=== PATIENT | male | born 1945 | race Caucasian/White ===

== ENCOUNTER 2018-05-17 08:01 | Emergency (ER) | payer MEDICARE, MEDICAID ==
--- OUTSIDE RECORDS SUMMARY | 2018-05-17 08:19 | XMS REPORT ---
:1945 External Reference #:[id number] Author Organization [facility] Address [address] [address] Phone [phone] Care Team Providers Name Role Phone Roosevelt Kuhn DO Primary Care Physician Unavailable Payers Type Date Identification Numbers Payment Subscriber Provider Medicare Primary Effective: Policy Number: Medicare Carson Byrne 1972 [id number] Anand Group Name: [facility] [address] PayID: [id number] [place] [address] Medigap Part B Effective: Policy Number: Medicaid ### Carson Byrne 2000 [id number] >11 Anand PayID: [id number] [address] [place] [address] Problems Date Description Provider Status Onset: 02/02/2017 Hypothyroidism Adriane Ruiz NP Active Onset: 02/02/2017 Mild mental handicap Adriane Ruiz NP Active Onset: 02/02/2017 Parkinson's disease Adriane Ruiz NP Active Social History Type Date Description Comments Smoking 12/22/2017 Patient has never smoked Allergies, Adverse Reactions, Alerts Date Description Reaction Status Severity Comments 06/11/2016 NKDA active Medications Medication Date Status Form Strength Qnty SIG Indications Ordering Provider Preservision 05/03/ Active Capsules Areds 2 60cap Take 1 Nanavati, Areds 2 2018 s Capsule By Digant Mouth Two M., MD Times A Day QC Aspirin Low 05/03/ Active Tablets DR 81mg 30tab Take 1 Hattie Dose 2018 s Tablet By Roosevelt, Mouth Daily DO *DO Not Crush Or Chew* Artificial 06/02/ Active Solution 1.4% 00uni Instill 1 Miguel Angel, Tears 2016 ts Drop In Each Digant Eye as MD Luis Directed as Needed For Irritation [facility] Zinc Oxide 04/25/ Active Cream 1-10% 113gm to be placed Hattie Diaper 2016 on skin to , Roosevelt Heath, prevent DO breakdown twice daily as needed on buttocks Mapap 03/25/ Active Tablets 325mg 00tab Take 2 Nanavati, 2017 s Tablets Digant (650MG) By MD Luis Mouth Every 4 Hours as Needed For Pain Or Fever >101 Or Discomfort *Max Daily Dose: 8 Calcium 12/28/ Active Tablets 600-400mg 30tab take 1 Hattie Carbonate-Vitam 2017 -Unit s tablet by Roosevelt, in D mouth daily DO send 30 Bacitracin 12/28/ Active Ointment 500Unit/G 00uni Apply 2 Hattie (External) 2017 M ts Times A Day , Roosevelt Heath, as Needed DO For Minor Cuts/ Wounds Until Healed Vitamins/Minera 07/07/ Active Tablets 30tab take 1 Miguel Angel, ls 2016 s tablet by Digant mouth daily MD Luis Gabapentin 07/01/ Active Capsules 300mg 30cap 1 by mouth Hattie 2016 s at bedtime , Roosevelt Heath, DO Trospium 07/01/ Active Tablets 20mg 60tab 1 tab twice Hattie Chloride 2016 s a day , Roosevelt Heath, DO Levothyroxine 07/01/ Active Tablets 50mcg 30tab 1 by mouth Hattie Sodium 2016 s every day , Roosevelt Heath, DO Restasis 07/01/ Active Emulsion 0.05% 60uni 1 Drop In Hattie 2016 ts Each Eye , Roosevelt Heath, Twice A Day DO Propranolol HCL 07/01/ Active Tablets 20mg 60tab 1 by mouth Hattie 2016 s twice a day , Roosevelt Heath, DO Calcitonin 07/01/ Active Solution 200Unit/A 3.7un spray one Hattie ([place]) 2016 ct its spray in a , Roosevelt Heath, nostril DO every day, alternate nostrils daily. Carbidopa-Levod / Active Tablets ER 50-200mg 1 by mouth Unknown opa ER 0000 nightly @ 9:00PM Stool Softener / Active Capsules 100mg 1 by mouth Unknown 0000 twice a day Lamotrigine / Active Tablets 100mg 1 by mouth Unknown 0000 every day @ bedtime Senna / Active Tablets 8.6mg take two Unknown 0000 tablets by mouth at bedtime Rytary / Active Capsules 36.25-145 3 caps tid Unknown 0000 ER mg Buspirone HCL / Active Tablets 10mg 1 by mouth Unknown 0000 twice a day Tussin / Active Liquid 100mg/5ML 10 ml PO q4h Unknown 0000 prn Chlorhexidine / Active Solution 0.12% 473un Use 15 Hattie Gluconate 0000 its Milliliters , Roosevelt P, Up To Two DO Times A Day*Swish And Spit Clindamycin / Active Gel 1% 60uni Apply Daily Nanavati, Phosphate 0000 ts To Affected Digant Area MD Luis Antioxidant 05/03/ Hx Capsules 60cap 1 By Mouth Nanavati, Formula 2018 - s Twice A Day Digant 05/03/ MD Luis 2017 SM Aspirin 12/05/ Hx Tablets DR 81mg 30tab Take 1 Nanavati, Adult Low 2017 - s Tablet By Digant Strength 10/10/ Mouth Daily MD Luis 2017 *DO Not Crush Or Chew* Clindamycin 09/08/ Hx Gel 1% 60uni apply daily Hattie Phosphate 2018 - ts to affected , Roosevelt P, 09/19/ area DO 2017 Clindamycin 04/13/ Hx Gel 1% 60gm apply daily Hattie Phosphate 2016 - to affected , Roosevelt P, 06/15/ area DO 2016 Doxycycline 04/13/ Hx Capsules 100mg 28cap take 1 Hattie Hyclate 2016 - s tablet twice , Roosevelt P, 06/15/ a day for 14 DO 2016 days Amoxicillin 03/09/ Hx Capsules 500mg 14cap 1 capsule R21 Hattie 2016 - s twice a day , Roosevelt P, 06/15/ for 7 days DO 2016 Multi Vitamin 07/01/ Hx Tablets 30tab 1 by mouth Hattie Daily 2015 - s every day , Roosevelt P, 2015 Calcium 600-D 07/01/ Hx Tablets 600-400mg 30tab 1 tab by Hattie 2015 - -Unit s mouth daily. , Roosevelt Heath, 2016 Chlorhexidine 07/01/ Hx Solution 0.12% 118un use 15 Hattie Gluconate 2016 - its milliliters , Roosevelt Heath, 11/10/ up to two DO 2017 times a day Aspirin Ec Low 07/01/ Hx Tablets DR 81mg 30tab Take 1 Nanavati, Dose 2015 - s Tablet By Digant 12/05/ Mouth Daily MD Luis 2017 *DO Not Crush Or Chew* Preservision 07/01/ Hx Capsules Areds 2 60cap 1 By Mouth Miguel Angel, Areds 2 2015 - s Twice A Day Digant 05/03/ MD Luis 2017 Carbidopa-Levod / Hx Tablets 25-100mg take 1 07/26 Unknown opa 0000 - tabs by 06/15/ mouth every 2016 2 hours from 6:30Am to 6:30PM Immunizations CPT Code Status Date Vaccine Reaction Lot # [id number] Given 05/08/2018 Fluzone Highdose Age 65 And Im inj completed, Pt [id number] Over Preservative & tolerated well Antibiotic Free 13913 Given 09/19/2017 Prevnar 13 Pneumococal Pt tolerated well [id number] Conjugate Vaccine 95509 Given 09/19/2017 Fluzone Highdose Age 65 And Pt tolerated well [id number] Over Preservative & Antibiotic Free 66689 Given 06/11/2016 Fluzone Highdose Age 65 And [id number] Over Preservative & Antibiotic Free Vital Signs Date Vital Result Comment 05/08/2018 Body Temperature 97.8 F Weight 122.00 lb Heart Rate 77 /min BP Systolic 118 mmHg BP Diastolic 62 mmHg Respiratory Rate 18 /min Height 69 inches 5'9" O2 % BldC Oximetry 94 % BMI (Body Mass Index) 18.0 kg/m2 03/23/2018 Body Temperature 98.8 F Weight 130.00 lb Heart Rate 90 /min BP Systolic 118 mmHg BP Diastolic 64 mmHg Respiratory Rate 18 /min Height 69 inches 5'9" O2 % BldC Oximetry 98 % BMI (Body Mass Index) 19.2 kg/m2 03/03/2018 Body Temperature 98.6 F Weight 125.00 lb Heart Rate 92 /min BP Systolic 132 mmHg BP Diastolic 70 mmHg Respiratory Rate 18 /min Height 69 inches 5'9" O2 % BldC Oximetry 96 % BMI (Body Mass Index) 18.5 kg/m2 12/22/2017 Body Temperature 97.9 F Weight 128.00 lb Heart Rate 82 /min BP Systolic 106 mmHg BP Diastolic 68 mmHg Respiratory Rate 18 /min Height 69 inches 5'9" O2 % BldC Oximetry 98 % BMI (Body Mass Index) 18.9 kg/m2 09/19/2017 Body Temperature 98.8 F Weight 128.00 lb Heart Rate 92 /min BP Systolic 128 mmHg BP Diastolic 74 mmHg Respiratory Rate 18 /min Height 69 inches 5'9" O2 % BldC Oximetry 98 % BMI (Body Mass Index) 18.9 kg/m2 06/15/2017 Body Temperature 98.2 F Weight 126.00 lb Heart Rate 86 /min BP Systolic 112 mmHg BP Diastolic 64 mmHg Respiratory Rate 16 /min Height 69 inches 5'9" O2 % BldC Oximetry 97 % BMI (Body Mass Index) 18.6 kg/m2 04/13/2017 Body Temperature 97.2 F Weight 126.00 lb Heart Rate 85 /min BP Systolic 120 mmHg BP Diastolic 78 mmHg Respiratory Rate 16 /min Height 69 inches 5'9" O2 % BldC Oximetry 96 % BMI (Body Mass Index) 18.6 kg/m2 04/13/2017 Respiratory Rate 16 /min Height 69 inches 5'9" 03/11/2017 Body Temperature 97.6 F Weight 126.00 lb Heart Rate 68 /min BP Systolic 118 mmHg BP Diastolic 64 mmHg Respiratory Rate 18 /min Height 69 inches 5'9" O2 % BldC Oximetry 98 % BMI (Body Mass Index) 18.6 kg/m2 03/09/2017 Body Temperature 98.3 F Weight 126.00 lb Heart Rate 85 /min BP Systolic 128 mmHg BP Diastolic 66 mmHg Respiratory Rate 18 /min Height 69 inches 5'9" O2 % BldC Oximetry 98 % BMI (Body Mass Index) 18.6 kg/m2 02/22/2017 Body Temperature 98.5 F Weight 129.00 lb Heart Rate 86 /min BP Systolic 152 mmHg BP Diastolic 90 mmHg BP Systolic Recheck 148 mmHg BP Diastolic Recheck 88 mmHg Respiratory Rate 18 /min Height 69 inches 5'9" O2 % BldC Oximetry 98 % BMI (Body Mass Index) 19.0 kg/m2 02/15/2017 Body Temperature 97.6 F Weight 128.00 lb Heart Rate 82 /min BP Systolic 116 mmHg BP Diastolic 62 mmHg Respiratory Rate 18 /min Height 69 inches 5'9" O2 % BldC Oximetry 98 % BMI (Body Mass Index) 18.9 kg/m2 02/02/2017 Body Temperature 98.5 F Weight 126.00 lb Heart Rate 84 /min BP Systolic 136 mmHg BP Diastolic 82 mmHg Height 69 inches 5'9" O2 % BldC Oximetry 98 % BMI (Body Mass Index) 18.6 kg/m2 12/09/2016 Body Temperature 97.8 F Weight 126.00 lb Heart Rate 88 /min BP Systolic 132 mmHg BP Diastolic 78 mmHg Respiratory Rate 20 /min Height 69 inches 5'9" O2 % BldC Oximetry 97 % BMI (Body Mass Index) 18.6 kg/m2 09/02/2016 Body Temperature 96.9 F Weight 128.00 lb Heart Rate 84 /min BP Systolic 100 mmHg BP Diastolic 70 mmHg Respiratory Rate 18 /min Height 69 inches 5'9" O2 % BldC Oximetry 98 % BMI (Body Mass Index) 18.9 kg/m2 06/11/2016 Body Temperature 98.3 F Heart Rate 89 /min BP Systolic 116 mmHg BP Diastolic 70 mmHg Respiratory Rate 16 /min Height 69 inches 5'9" O2 % BldC Oximetry 98 % Results Test Date Test Result H/L Range Note CBC With Diff 10/13/2017 WBC 5.5 10*3/uL (4.1-11.0) RBC 4.16 10*6/uL Low (4.60-6.10) HGB 14.1 g/dL (13.5-18.0) HCT 41.0 % (41.0-53.0) MCV 98.7 fL High (80.0-95.0) MCH 34.1 pg High (27.0-32.0) MCHC 34.5 g/dL (32.0-36.0) RDW 13.2 % (10.5-14.5) PLT 187 10*3/uL (150-450) MPV 7.4 fL (7.1-10.7) Neut % 68.1 % (35.0-75.0) Lymph % 21.9 % (16.0-52.0) [place] % 8.5 % High (0.0-8.0) Eos % 1.1 % (0.0-5.0) Baso % 0.4 % (0.0-4.0) Neut # 3.8 10*3/uL (1.8-7.7) Lymph # 1.2 10*3/uL (1.2-4.8) [place] # 0.5 10*3/uL (0.0-0.8) Eos # 0.1 10*3/uL (0.0-0.5) Baso # 0.0 10*3/uL (0.0-0.2) CBC With Auto Diff 09/08/2017 WBC 4.7 K/uL 4.1-11.0 1 RBC 3.87 M/uL Low 4.60-6.10 1 Hemoglobin 13.4 gm/dL Low 13.5-18.0 1 Hematocrit 38.2 % Low 41.0-53.0 1 MCV 98.8 fL High 80.0-97.0 1 MCH 34.7 pg High 27.0-32.0 1 MCHC 35.1 g/dL 32.0-36.0 1 RDW 13.0 % 11.5-14.5 1 PLT Count 189 K/ul 140-400 1 MPV 7.8 FL 7.1-10.7 1 Neutrophil 66.7 % 35.0-75.0 1 Lymphocyte 22.7 % 16.0-52.0 1 Monocyte 8.8 % 2.0-10.0 1 Eosinophil 1.3 % 0.0-5.0 1 Basophil 0.5 % 0.0-4.0 1 Abs Neutrophils 3.1 K/uL 2.1-8.0 1 Abs Lymphocytes 1.1 K/uL 0.8-5.5 1 Abs Monocytes 0.4 K/uL 0.1-1.0 1 Abs Eosinophils 0.1 K/uL 0.0-0.5 1 Abs Basophils 0.0 K/uL 0.0-0.3 1 Comprehensive Met Panel-FCMG 09/08/2017 Sodium 144 mmol/L 135-146 1, 2 Potassium 4.5 mmol/L 3.5-5.2 1 Chloride# 104 mmol/L 97-110 1, 3 Carbon Dioxide 33 mmol/L 24-34 1 Glucose 77 mg/dL 70-105 1 BUN 17 mg/dL 6-26 1 Creatinine 0.8 mg/dL 0.5-1.4 1 Calcium 9.9 mg/dL 8.5-10.2 1 Total Protein 5.8 g/dL Low 6.0-8.0 1 Albumin 4.3 g/dL 3.6-4.9 1 Globulin 1.5 g/dL Low 2.0-3.5 1 A/G Ratio 2.9 Ratio High 1.0-2.2 1 Total Bilirubin 0.6 mg/dL 0.1-1.3 1 Alkaline Phosphatase 56 U/L 24-140 1 Alt 4 U/L 3-42 1 Ast 17 U/L 8-42 1 Li Egfr >60 >60 1, 4 Non Li Egfr >60 >60 1, 5 Anion Gap 7 mmol/L 5-15 1, 6 Lipid 09/08/2017 Cholesterol 171 mg/dL 50-199 1 Triglycerides 74 mg/dL 30-200 1 HDL 58 mg/dL 29-71 1, 7 Chol/ HDL Ratio 2.9 ratio Low 4.0-6.7 1 VLDL 15 mg/dL 2-29 1 LDL (Calc) 98 mg/dL 20-99 1, 8 Laboratory test finding 09/08/2017 TSH 1.05 uIU/mL 0.35-4.94 1 Vitamin B12 453 pg/mL 180-914 1 Vitamin D 25 Hydroxy 29 ng/mL Low 30-100 1, 9 Iron Panel 11/25/2016 Iron, Total 66 g/dL 65-175 10 Transferrin 216.0 mg/dL 203.0-362.0 10 Tibc (calc) 302 g/dL 261-478 10 % Iron Saturation 21.8 % 13.0-45.0 10 Laboratory test finding 11/25/2016 TSH 0.75 uIU/mL 0.35-4.94 10 Vitamin B12 407 pg/mL 180-914 10 Vit D,25 Hydroxy 45 ng/mL 31-100 10 Lipid 11/25/2016 Cholesterol 172 mg/dL 50-199 10 Triglycerides 48 mg/dL 30-200 10 HDL 62 mg/dL 29-71 10, 11 Chol/ HDL Ratio 2.8 ratio Low 4.0-6.7 10 VLDL 10 mg/dL 2-29 10 LDL (Calc) 101 mg/dL High 20-99 10, 12 Comprehensive Metabolic (CMP) 11/25/2016 Sodium 143 mmol/L 135-146 10, 13 Potassium 4.5 mmol/L 3.5-5.2 10 Chloride# 106 mmol/L 97-110 10, 14 Carbon Dioxide 29 mmol/L 24-34 10 Glucose 86 mg/dL 70-105 10 BUN 27 mg/dL High 6-26 10 Creatinine 0.8 mg/dL 0.5-1.4 10 Calcium 9.3 mg/dL 8.5-10.2 10 Total Protein 5.9 g/dL Low 6.0-8.0 10 Albumin 4.1 g/dL 3.6-4.9 10 Globulin 1.8 g/dL Low 2.0-3.5 10 A/G Ratio 2.3 Ratio High 1.0-2.2 10 Total Bilirubin 0.5 mg/dL 0.1-1.3 10 Alkaline Phosphatase 55 U/L 24-140 10 Alt 5 U/L 3-42 10 Ast 17 U/L 8-42 10 Li Egfr >60 >60 10, 15 Non Li Egfr >60 >60 10, 16 Anion Gap 13 mmol/L 7-16 10, 17 CBC With Auto Diff 11/25/2016 WBC 6.6 K/uL 4.1-11.0 10 RBC 3.82 M/uL Low 4.60-6.10 10 Hemoglobin 12.9 gm/dL Low 13.5-18.0 10 Hematocrit 38.4 % Low 41.0-53.0 10 MCV 100.5 fL High 80.0-97.0 10 MCH 33.7 pg High 27.0-32.0 10 MCHC 33.6 g/dL 32.0-36.0 10 RDW 13.2 % 11.5-14.5 10 PLT Count 193 K/ul 140-400 10 Neutrophil 70.6 % 35.0-75.0 10 Lymphocyte 18.6 % 16.0-52.0 10 Monocyte 9.2 % 2.0-10.0 10 Eosinophil 1.2 % 0.0-5.0 10 Basophil 0.4 % 0.0-4.0 10 Abs Neutrophils 4.7 K/uL 2.1-8.0 10 Abs Lymphocytes 1.2 K/uL 0.8-5.5 10 Abs Monocytes 0.6 K/uL 0.1-1.0 10 Abs Eosinophils 0.1 K/uL 0.0-0.5 10 Abs Basophils 0.0 K/uL 0.0-0.3 10 CBC With Auto Diff 06/11/2016 WBC 5.1 K/uL 4.1-11.0 18 RBC 3.76 M/uL Low 4.60-6.10 18 Hemoglobin 12.8 gm/dL Low 13.5-18.0 18 Hematocrit 37.2 % Low 41.0-53.0 18 MCV 98.9 fL High 80.0-97.0 18 MCH 34.1 pg High 27.0-32.0 18 MCHC 34.4 g/dL 32.0-36.0 18 RDW 13.5 % 11.5-14.5 18 PLT Count 220 K/ul 140-400 18 Neutrophil 71.9 % 35.0-75.0 18 Lymphocyte 19.8 % 16.0-52.0 18 Monocyte 7.2 % 2.0-10.0 18 Eosinophil 0.7 % 0.0-5.0 18 Basophil 0.4 % 0.0-4.0 18 Abs Neutrophils 3.7 K/uL 2.1-8.0 18 Abs Lymphocytes 1.0 K/uL 0.8-5.5 18 Abs Monocytes 0.4 K/uL 0.1-1.0 18 Abs Eosinophils 0.0 K/uL 0.0-0.5 18 Abs Basophils 0.0 K/uL 0.0-0.3 18 Comprehensive Metabolic (CMP) 06/11/2016 Sodium 140 mmol/L 134-142 18 Potassium 4.0 mmol/L 3.5-5.2 18 Chloride 102 mmol/L 97-109 18 Carbon Dioxide 29 mmol/L 24-34 18 Glucose 149 mg/dL High 70-105 18 BUN 27 mg/dL High 6-26 18 Creatinine 0.7 mg/dL 0.5-1.4 18 Calcium 9.0 mg/dL 8.5-10.2 18 Total Protein 6.3 g/dL 6.0-8.0 18 Albumin 4.3 g/dL 3.6-4.9 18 Globulin 2.0 g/dL 2.0-3.5 18 A/G Ratio 2.2 Ratio 1.0-2.2 18 Total Bilirubin 0.4 mg/dL 0.1-1.3 18 Alkaline Phosphatase 70 U/L 24-140 18 Alt 19 U/L 3-42 18 Ast 18 U/L 8-42 18 Anion Gap 13 mmol/L 6-14 18 Li Egfr >60 >60 18, 19 Non Li Egfr >60 >60 18, 20 Lipid 06/11/2016 Cholesterol 155 mg/dL 50-199 18 Triglycerides 113 mg/dL 30-200 18 HDL 60 mg/dL 29-71 18, 21 Chol/ HDL Ratio 2.6 ratio Low 4.0-6.7 18 VLDL 23 mg/dL 2-29 18 LDL (Calc) 72 mg/dL 20-99 18, 22 Laboratory test finding 06/11/2016 TSH 0.66 uIU/mL 0.35-4.94 18 Hepatitis C Virus Antibody NONREACTIVE Nonreactive 18 1 This sample is drawn by:earnestine 2 Updated reference range on new analyzer 3 Updated reference range on new analyzer 4 Concerning GFR Guidelines for Americans: Normal function or mild renal disease, if clinically at risk: >/=60 mL/min Moderately decreased: 30-59 Severely decreased: 15-29 Renal failure: <15 5 Concerning GFR Guidelines: Normal function or mild renal disease, if clinically at risk: >/=60 mL/min Moderately decreased: 30-59 Severely decreased: 15-29 Renal failure: <15 Glomerular Filtration Rate (GFR) is estimated based on the MDRD equation, which assumes a steady state for creatinine as recommended by the National Kidney Disease Education Program in conjunction with the National Institutes of Health and the National Kidney Foundation. Clinical conditions in which it may be necessary to measure GFR by using clearance methods include extremes of age and body size, severe malnutrition or obesity, diseases of skeletal muscle, paraplegia or quadriplegia, vegetarian diet, rapidly changing kidney function, and calculation of the dose of potentially toxic drugs that are excreted by the kidneys. 6 Updated Reference Range 7 Per NCEP ATP III Guidelines: Results lower than 40 mg/dL are suggestive of increased risk for coronary artery disease. Results > or=to 60 mg/dL are considered a negative risk factor. 8 Per NCEP ATP III Guidelines: Normal Population <130 Patients with medical conditions: CHD/DM Optimal: <100 Borderline high: 130-159 High: 160-189 Very high: >189 9 Clinical Guidelines for recommended serum 25(OH)Vitamin D Deficient at less than 20 ng/mL Insufficient at 20 to <30 ng/mL Sufficient at 30-100 ng/mL Toxicity at greater than 100 ng/mL 10 This sample is drawn by:DG Fastin hours This sample is drawn by:DG Fastin hours Fastin hours Fastin hours Fastin hours Fastin hours Fastin hours This sample is drawn by:DG Fastin hours This sample is drawn by:DG Fastin hours This sample is drawn by:DG Fastin hours 11 Per NCEP ATP III Guidelines: Results lower than 40 mg/dL are suggestive of increased risk for coronary artery disease. Results > or=to 60 mg/dL are considered a negative risk factor. 12 Per NCEP ATP III Guidelines: Normal Population <130 Patients with medical conditions: CHD/DM Optimal: <100 Borderline high: 130-159 High: 160-189 Very high: >189 13 Updated reference range on new analyzer 14 Updated reference range on new analyzer 15 Concerning GFR Guidelines for Americans: Normal function or mild renal disease, if clinically at risk: >/=60 mL/min Moderately decreased: 30-59 Severely decreased: 15-29 Renal failure: <15 16 Concerning GFR Guidelines: Normal function or mild renal disease, if clinically at risk: >/=60 mL/min Moderately decreased: 30-59 Severely decreased: 15-29 Renal failure: <15 Glomerular Filtration Rate (GFR) is estimated based on the MDRD equation, which assumes a steady state for creatinine as recommended by the National Kidney Disease Education Program in conjunction with the National Institutes of Health and the National Kidney Foundation. Clinical conditions in which it may be necessary to measure GFR by using clearance methods include extremes of age and body size, severe malnutrition or obesity, diseases of skeletal muscle, paraplegia or quadriplegia, vegetarian diet, rapidly changing kidney function, and calculation of the dose of potentially toxic drugs that are excreted by the kidneys. 17 Updated reference range on new analyzer 18 This sample is drawn by:tg 19 Concerning GFR Guidelines for Americans: Normal function or mild renal disease, if clinically at risk: >/=60 mL/min Moderately decreased: 30-59 Severely decreased: 15-29 Renal failure: <15 20 Concerning GFR Guidelines: Normal function or mild renal disease, if clinically at risk: >/=60 mL/min Moderately decreased: 30-59 Severely decreased: 15-29 Renal failure: <15 Glomerular Filtration Rate (GFR) is estimated based on the MDRD equation, which assumes a steady state for creatinine as recommended by the National Kidney Disease Education Program in conjunction with the National Institutes of Health and the National Kidney Foundation. Clinical conditions in which it may be necessary to measure GFR by using clearance methods include extremes of age and body size, severe malnutrition or obesity, diseases of skeletal muscle, paraplegia or quadriplegia, vegetarian diet, rapidly changing kidney function, and calculation of the dose of potentially toxic drugs that are excreted by the kidneys. 21 Per NCEP ATP III Guidelines: Results lower than 40 mg/dL are suggestive of increased risk for coronary artery disease. Results > or=to 60 mg/dL are considered a negative risk factor. 22 Per NCEP ATP III Guidelines: Normal Population <130 Patients with medical conditions: CHD/DM Optimal: <100 Borderline high: 130-159 High: 160-189 Very high: >189 Procedures Date CPT Code Description Status Comment 03/23/2018 36881 Electrocardiogram Complete Completed 03/11/2017 04969 Electrocardiogram Complete Completed 02/04/2017 Colonoscopy Completed Document: 02/04/17 - Cologuard Results 12/09/2016 05711 Electrocardiogram Complete Completed Encounters Type Date Location Provider CPT E/M Dx Office Visit 03/23/2018 [facility] Roosevelt Kuhn, [address] M81.0 9:00a Associates DO E03.9 F70 I10 L30.9 Z12.11 Office Visit 03/03/2018 1:00p [place] [address] F71 Associates R21 R29.6 S81.011A Office Visit 12/22/2017 9:00a [place] Roosevelt Garza, [address] Z00.00 [place] DO E03.9 G20 I10 F71 Office Visit 09/19/2017 1:30[place] [address] G20 Associates E78.5 D64.9 R21 F70 I10 Z23 Z12.11 Office Visit 06/15/2017 9:15[place] [address] E03.9 Associates G20 E55.9 R21 F70 I10 Office Visit 04/13/2017 11:30a [facility] [place] [address] R21 Associates G20 F70 I10 E78.5 Office Visit 03/11/2017 10:30a [facility] [place] [address] R21 Associates G20 F70 I10 E03.9 Office Visit 03/09/2017 10:30a [facility] Roosevelt Kuhn, [address] R21 Associates DO Office Visit 02/22/2017 2:00p [facility] Roosevelt Kuhn, [address] S01.01xD Associates DO G20 F70 R29.6 I10 Office Visit 02/15/2017 3:00p [facility] Roosevelt Kuhn, [address] S01.01xA Associates DO G20 F70 R29.6 Office Visit 02/02/2017 11:40a [facility] Michael Salgado, [address] R41.82 Associates CAT Forrest G20 F70 E03.9 B35.3 Office Visit 12/09/2016 10:00a [facility] Roosevelt Kuhn, G0439 Z00.00 Associates DO G20 F70 I10 E03.9 E55.9 E78.5 D64.9 Z12.11 Office Visit 09/02/2016 11:00a [facility] [place] [address] G20 Associates E03.9 F70 I10 Office Visit 06/11/2016 11:00a [facility] [place] [address] G20 Associates H26.9 E03.9 F70 I10 Z23 Z13.9 Z72.89 Plan of Care Future Appointment(s):06/22/2018 9:00 am - Roosevelt Kuhn DO at [facility][Note 3]05/08/2018 - Roosevelt Kuhn, DOZ23 Encounter for immunizationComments:patient tolerated immunization wellL30.9 Dermatitis, unspecifiedComments:Patient to start topical clindamycin. House counseled on proper hygiene. Continue to monitor. Patient to return in 2 weeks unless rash is [id number] Moderate intellectual disabilitiesComments:Continue excellent home care. Continue to [id number] Parkinson's diseaseComments:continue to follow with neurology. Patient tolerating medication wellI10 Essential (primary ) hypertensionComments:stable currently. Continue current regimen
[2018-05-17 08:36] VITALS: BP 132/76
--- NOTE | 2018-05-17 08:51 | UC ---
Head Injury HPI - HPI Summary HPI Summary: 72 year old male comes in today with a chief complaint of head injury. Sometime between 4 and 6 this morning he sustained injury. Patient has special needs and is essentially nonverbal and lives in a [facility]. As 4 AM check he had no injury at the 6 AM check he had a bump on his left forehead. His behaviors been normal otherwise. No focal neurologic deficit he has not been throwing up. No abnormal behavior. - History Of Current Complaint Chief Complaint: UCHeadInjury Stated Complaint: SP FALL-HEAD INJURY Time Seen by Provider: 05/17/18 08:43 Pain Intensity: 4 - Allergies/Home Medications Allergies/Adverse Reactions: Allergies Allergy/AdvReac Type Severity Reaction Status Date / Time No Known Allergies Allergy Verified 05/17/18 08:46 Home Medications: Home Medications Chlorhexidine MW 0.12% 473ML* [Peridex Mouth Wash 0.12%*] 15 ml MT BID 05/17/18 [History Confirmed 05/17/18] Clindamycin 1% TOPICAL(NF) [Cleocin-T 1% TOPICAL(NF)] 1 % EX DAILY 05/17/18 [ History Confirmed 05/17/18] Docusate CAP* [Colace Cap*] 100 mg PO BID 05/17/18 [History Confirmed 05/17/18] Rytary 3 tab PO TID 05/17/18 [History Confirmed 05/17/18] busPIRone TAB* [Buspar TAB*] 10 mg PO BID 05/17/18 [History Confirmed 05/17/18] PMH/Surg Hx/FS Hx/Imm Hx Endocrine History: Hypothyroidism Cardiovascular History: Hypertension - Surgical History Surgical History: Yes Surgery Procedure, Year, and Place: 1976 HERNIA; BILAT INGUINAL HERNIA 11/20-2006; RT INGUINAL HERNIA 02/2010 - Family History Known Family History: Positive: Unknown - Social History Alcohol Use: None Substance Use Type: None Smoking Status (MU): Never Smoked Tobacco Review of Systems Constitutional: Negative Skin: Other - see hpi Eyes: Negative ENT: Negative Respiratory: Negative Cardiovascular: Negative Gastrointestinal: Negative Motor: Negative Neurovascular: Negative Musculoskeletal: Negative Neurological: Negative Psychological: Negative Is Patient Immunocompromised?: No All Other Systems Reviewed And Are Negative: Yes Physical Exam Triage Information Reviewed: Yes Completion Of Physical Exam Limited Due To: Other - Patient is nonverbal at baseline Appearance: Well-Appearing, No Pain Distress, Well-Nourished Vital Signs: Initial Vital Signs Temp 97.3 F 05/17/18 08:28 Pulse 73 05/17/18 08:28 Resp 18 05/17/18 08:28 BP 132/76 05/17/18 08:28 Pulse Ox 100 05/17/18 08:28 Vital Signs Reviewed: Yes Eye Exam: Normal Eyes: Positive: Conjunctiva Clear ENT: Positive: Normal ENT inspection, TMs normal, Other - Swelling on the left forehead Neck exam: Normal Neck: Positive: Supple, Nontender Respiratory: Positive: Lungs clear, Normal breath sounds, No respiratory distress Cardiovascular: Positive: RRR Abdomen Description: Positive: Nontender, Soft Bowel Sounds: Positive: Present Musculoskeletal Exam: Normal Musculoskeletal: Positive: Strength Intact, ROM Intact Neurological Exam: Normal Neurological: Positive: Alert, Muscle Tone Normal Psychological Exam: Normal Psychological: Positive: Age Appropriate Behavior Skin Exam: Normal Head Injury Course/Dx - Course Course Of Treatment: Order Information: CT SPINE CERVICAL W/O. Accession Number : [id number]. CPT: 91831. Indication: Fall, neck injury. CT of the cervical spine was obtained in the axial plane. Sagittal and coronal. reconstructed images were obtained. Mastoid air cells and skull base are unremarkable. The C1 ring is intact with degenerative. changes of the atlantoaxial joint. The vertebral bodies appear normal in height. No evidence of compression fracture is. noted. There is disc space narrowing at C4-C5 and C6-C7 with mild dorsal osteophyte. formation. Spinal canal appears to be intact. The intervertebral foramen all appear. patent. IMPRESSION: No fracture of the cervical spine is noted. Degenerative disc disease at C4-C5. and C6-C7 is noted. . <Electronically signed by Lucie Becerra MD in [facility]> 05/17/18 0990. Order Information: CT BRAIN WO. Accession Number: [id number]. CPT: 97096. Indication: Fall this morning. Swelling and bruising at LEFT forehead. Comparison: January 30, 2008 MRI. Technique: Noncontrast CT vertex of skull through foramen magnum. Report: Mild prominence of the cerebral sulci and cerebellar fissures reflecting atrophy. Unremarkable ventricles and basal cisterns. Negative for sanchez matter white matter. obscuration, intra or extra-axial hemorrhage, or mass effect. Decreased density in the. periventricular and subcortical white matter while non-specific is most likely due to. chronic microangiopathy. Negative for calvarial or skull base fracture. Grossly clear paranasal sinuses and mastoid. air spaces. Small LEFT frontal scalp hematoma. IMPRESSION: #. No CT evidence for traumatic brain injury. #. Small LEFT frontal scalp hematoma. #. Mild involutional change and stigmata of chronic small vessel ischemic disease. . <Electronically signed by David Yates MD in [facility]> 05/17/1896. Discussed the CT results with the patient and his caregiver. The plan is to ice pack the area as needed. Otherwise reevaluation if patient has any worsening of symptoms such as weakness numbness unexplained vomiting or any other concerns. - Differential Dx/Diagnosis Provider Diagnoses: HEAD INJURY Discharge - Sign-Out/Discharge Documenting (check all that apply): Patient Departure All imaging exams completed and their final reports reviewed: Yes - Discharge Plan Condition: Stable Disposition: HOME Patient Education Materials: Head Injury (ED) Referrals: Cristina Michelle MD [Primary Care Provider] - Additional Instructions: FOLLOW UP WITH YOUR DOCTOR IF NOT COMPLETELY IMPROVED. GET RECHECKED FOR ANY WORSENING OF YOUR CONDITION; WEAKNESS, NUMBNESS, UNEXPLAINED VOMITING OR QUESTIONS OR CONCERNS. - Billing Disposition and Condition Condition: STABLE Disposition: Home
--- NOTE | 2018-05-17 09:29 | RAD ---
Indication: Fall, neck injury. CT of the cervical spine was obtained in the axial plane. Sagittal and coronal reconstructed images were obtained. Mastoid air cells and skull base are unremarkable. The C1 ring is intact with degenerative changes of the atlantoaxial joint. The vertebral bodies appear normal in height. No evidence of compression fracture is noted. There is disc space narrowing at C4-C5 and C6-C7 with mild dorsal osteophyte formation. Spinal canal appears to be intact. The intervertebral foramen all appear patent. IMPRESSION: No fracture of the cervical spine is noted. Degenerative disc disease at C4-C5 and C6-C7 is noted.
--- NOTE | 2018-05-17 09:30 | RAD ---
Indication: Fall this morning. Swelling and bruising at LEFT forehead. Comparison: January 30, 2008 MRI. Technique: Noncontrast CT vertex of skull through foramen magnum. Report: Mild prominence of the cerebral sulci and cerebellar fissures reflecting atrophy. Unremarkable ventricles and basal cisterns. Negative for sanchez matter white matter obscuration, intra or extra-axial hemorrhage, or mass effect. Decreased density in the periventricular and subcortical white matter while non-specific is most likely due to chronic microangiopathy. Negative for calvarial or skull base fracture. Grossly clear paranasal sinuses and mastoid air spaces. Small LEFT frontal scalp hematoma. IMPRESSION: #. No CT evidence for traumatic brain injury. #. Small LEFT frontal scalp hematoma. #. Mild involutional change and stigmata of chronic small vessel ischemic disease.
== END 2018-05-17 10:05 | disposition home or self-care (01) ==
LOC: UCCORT 08:01
DX: S00.03XA Contusion of scalp, initial encounter (principal); I67.82 Cerebral ischemia; M50.320 Other cervical disc degeneration, mid-cervical region, unspecified level; I10 Essential (primary) hypertension; E03.9 Hypothyroidism, unspecified; R47.89 Other speech disturbances; W19.XXXA Unspecified fall, initial encounter; Y92.9 Unspecified place or not applicable; Z79.2 Long term (current) use of antibiotics
CPT/HCPCS: 70450; 72125; 99202; G0463

== ENCOUNTER 2018-07-25 10:02 | Emergency (ER) | payer MEDICARE, MEDICAID ==
--- OUTSIDE RECORDS SUMMARY | 2018-07-25 10:28 | XMS REPORT | Continuity of Care Document ---
:1945 External Reference #:[id number] Author Name Nava Padron PA Address [address] [place] [address] Care Team Providers Name Role Phone Roosevelt Kuhn DO Primary Care Physician Unavailable Payers Type Date Identification Numbers Payment Provider Subscriber Effective: Policy Number: Medicare Carson Michel 1972 [id number] Group Name: [facility] [address] PayID: [id number] [place] [address] Effective: 2001 Policy Number: Medicaid ### Carson Michel [id number] PayID: [id number] [address] [place] [address] Advance Directives Description No Information Available Problems Date Description Provider Status Onset: 02/02/2017 Parkinson's disease Michael Salgado Active Adriane, CAT Onset: 02/02/2017 Mild mental handicap Adela Ruiz, EXTERNAL RELATIONS DIRECTOR Onset: 02/02/2017 Hypothyroidism Adela Ruizqueline, EXTERNAL RELATIONS DIRECTOR Onset: 05/22/2018 Varicose veins of lower extremity Nava Padron PA Active Onset: 05/22/2018 Moderate intellectual disability Nava Padron PA Active Onset: 05/22/2018 Nervous system symptoms Nava Padron PA Active Family History Description No Information Available Social History Type Date Description Comments Sex Unknown Tobacco Use Reviewed: 12/22/17 Patient has never smoked Smoking Status Reviewed: 06/28/18 Patient has never smoked Allergies, Adverse Reactions, Alerts Description No Known Drug Allergies Medications Medication Date Status Form Strength Qnty SIG Indications Ordering Provider Miralax 07/19 Active Powder 510un if no BM in K59.00 ava its 48 hours give Digant pt 8 grams in MD Luis 8 oz of fluid Shingrix 06/28 Active Suspension 50mcg/0.5 1unit give as Rec ML s directed and , Roosevelt Heath, send DO documentation to primary care physician Preservision 05/03 Active Capsules Areds 2 60cap Take 1 Nanavati, Areds s Capsule By Digant Mouth Two MD Luis Times A Day QC Aspirin Low 05/[address] 81mg 30tab Take 1 Tablet Hattie Dose s By Mouth , Roosevelt Heath, Daily *DO Not DO Crush Or Chew* Artificial 06/02 Active Solution 1.4% 00uni Instill 1 ava, ts Drop In Each Digant Eye as MD Luis Directed as Needed For Irritation [facility] Zinc Oxide 04/25 Active Cream 1-10% 113gm to be placed Hattie Diap on skin to , Roosevelt Heath, prevent DO breakdown twice daily as needed on buttocks Mapap 03/25 Active Tablets 325mg 00tab Take 2 ava s Tablets Digant (650MG) By MD Luis Mouth Every 4 Hours as Needed For Pain Or Fever >101 Or Discomfort *Max Daily Dose: 8 Calcium 12/28 Active Tablets 600-400mg 30tab take 1 tablet Hattie Carbonate-Lucia -Unit s by mouth , Roosevelt Heath, min D daily send DO 30 Bacitracin 12/28 Active Ointment 500Unit/G 00uni Apply 2 Times Hattie (External) M ts A Day as Roosevelt, Needed For DO Minor Cuts/ Wounds Until Healed Vitamins/Sql Data Analyst 07/07 Active Tablets 30tab take 1 tablet Nanavati, s by mouth Digant daily MD Luis Gabapentin 07/01 Active Capsules 300mg 30cap 1 by mouth at Hattie /2016 s bedtime , Roosevelt Heath, DO Trospium 07/01 Active Tablets 20mg 60tab 1 tab twice a Hattie s day , Roosevelt Heath, DO Levothyroxine 07/01 Active Tablets 50mcg 30tab 1 by mouth Hattie Sodium /2015 s every day , Roosevelt P, DO Restasis 07/01 Active Emulsion 0.05% 60uni 1 Drop In Hattie /2015 ts Each Eye , Roosevelt P, Twice A Day DO Propranolol 07/01 Active Tablets 20mg 60tab 1 by mouth Hattie HCL s twice a day , Roosevelt P, DO Calcitonin 07/01 Active Solution 200Unit/A 3.7un spray one Hattie (Russell) ct its spray in a , Roosevelt P, nostril every DO day, alternate nostrils daily. Carbidopa-Levo Active Tablets ER 50-200mg 1 by mouth Unknown dopa ER / nightly @ 9:00PM Stool Softener Active Capsules 100mg 1 by mouth Unknown 0000 twice a day Lamotrigine Active Tablets 100mg 1 by mouth Unknown 0000 every day @ bedtime Senna Active Tablets 8.6mg take two tablets by mouth at bedtime Rytary Active Capsules ER 36.25-145 3 caps tid Unknown mg Buspirone HCL Active Tablets 10mg 1 by mouth Unknown twice a day Tussin Active Liquid 100mg/5ML 10 ml PO q4h Unknown prn Chlorhexidine Active Solution 0.12% 473un Use 15 Hattie Gluconate its Milliliters , Roosevelt P, Up To Two DO Times A Day*Swish And Spit Clindamycin Active Gel 1% 60uni Apply Daily Nanavati, Phosphate ts To Affected Digant Area MD Luis Antioxidant 05/03 Hx Capsules 60cap 1 By Mouth Nanavati, Formula s Twice A Day Digpete - MD Luis 05/03 SM Aspirin 12/[address] 81mg 30tab Take 1 Tablet Nanavati, Adult Low s By Mouth Digant Strength - Daily *DO Not MD Luis 05/03 Crush Or Chew* Clindamycin 09/08 Hx Gel 1% 60uni apply daily Hattie Phosphate ts to affected , Roosevelt P, - area DO 09/19 Clindamycin 04/13 Hx Gel 1% 60gm apply daily Hattie Phosphate to affected , Roosevelt Heath, - area DO 06/15 Doxycycline 04/13 Hx Capsules 100mg 28cap take 1 tablet Hattie Hyclate s twice a day , Roosevelt P, - for 14 days DO 06/15 Amoxicillin 03/09 Hx Capsules 500mg 14cap 1 capsule R21 Hattie s twice a day , Roosevelt P, - for 7 days DO 06/15 Multi Vitamin 07/01 Hx Tablets 30tab 1 by mouth Hattie Daily /2015 s every day , Roosevelt P, - DO 07/07 Calcium 600-D 07/01 Hx Tablets 600-400mg 30tab 1 tab by Hattie /2015 -Unit s mouth daily. , Roosevelt Heath, - DO 12/28 Chlorhexidine 07/01 Hx Solution 0.12% 118un use 15 Hattie Gluconate its milliliters , Roosevelt P, - up to two DO 11/10 times a day /2017 Aspirin Ec Low 07/[address] 81mg 30tab Take 1 Tablet Nanavati, Dose s By Mouth Digant - Daily *DO Not MD Luis 12/05 Crush Chew* Preservision 07/01 Hx Capsules Areds 2 60cap 1 By Mouth Nanavati, Areds s Twice A Day Cristina Smith MD 05/03 Carbidopa-Levo 00 Hx Tablets 25-100mg take 1 07/26 Unknown dopa /0000 tabs by mouth - every 2 hours 06/15 from 6:30Am to 6:30PM Immunizations CPT Code Status Date Vaccine Reaction Lot # [id number] Given 05/08/2018 Fluzone Highdose Age 65 And Im inj completed, Pt [id number] Over Preservative & tolerated well Antibiotic Free Given 09/19/2017 Prevnar 13 Pneumococal Pt tolerated well [id number] Conjugate Vaccine [id number] Given 09/19/2017 Fluzone Highdose Age 65 And Pt tolerated well [id number] Over Preservative & Antibiotic Free [id number] Given 06/11/2016 Fluzone Highdose Age 65 And [id number] Over Preservative & Antibiotic Free 17485 Given 09/27/2014 Tdap (Adacel) Ages 7 And Above Only Vital Signs Date Vital Result Comment 07/19/2018 2:45pm Body Temperature 97.7 F Weight 119.00 lb Heart Rate 80 /min BP Systolic 126 mmHg BP Diastolic 68 mmHg Respiratory Rate 18 /min Height 69 inches 5'9" O2 % BldC Oximetry 96 % BMI (Body Mass Index) 17.6 kg/m2 06/28/2018 9:54am Body Temperature 98.6 F Weight 119.00 lb Heart Rate 79 /min BP Systolic 118 mmHg BP Diastolic 72 mmHg Respiratory Rate 18 /min Height 69 inches 5'9" O2 % BldC Oximetry 79 % BMI (Body Mass Index) 17.6 kg/m2 05/22/2018 10:33am Weight 122.00 lb Heart Rate 75 /min BP Systolic 142 mmHg BP Diastolic 80 mmHg Respiratory Rate 16 /min Height 69 inches 5'9" O2 % BldC Oximetry 92 % BMI (Body Mass Index) 18.0 kg/m2 05/08/2018 9:23am Body Temperature 97.8 F Weight 122.00 lb Heart Rate 77 /min BP Systolic 118 mmHg BP Diastolic 62 mmHg Respiratory Rate 18 /min Height 69 inches 5'9" O2 % BldC Oximetry 94 % BMI (Body Mass Index) 18.0 kg/m2 03/23/2018 8:59am Body Temperature 98.8 F Weight 130.00 lb Heart Rate 90 /min BP Systolic 118 mmHg BP Diastolic 64 mmHg Respiratory Rate 18 /min Height 69 inches 5'9" O2 % BldC Oximetry 98 % BMI (Body Mass Index) 19.2 kg/m2 03/03/2018 1:51pm Body Temperature 98.6 F Weight 125.00 lb Heart Rate 92 /min BP Systolic 132 mmHg BP Diastolic 70 mmHg Respiratory Rate 18 /min Height 69 inches 5'9" O2 % BldC Oximetry 96 % BMI (Body Mass Index) 18.5 kg/m2 12/22/2017 9:04am Body Temperature 97.9 F Weight 128.00 lb Heart Rate 82 /min BP Systolic 106 mmHg BP Diastolic 68 mmHg Respiratory Rate 18 /min Height 69 inches 5'9" O2 % BldC Oximetry 98 % BMI (Body Mass Index) 18.9 kg/m2 09/19/2017 2:01pm Body Temperature 98.8 F Weight 128.00 lb Heart Rate 92 /min BP Systolic 128 mmHg BP Diastolic 74 mmHg Respiratory Rate 18 /min Height 69 inches 5'9" O2 % BldC Oximetry 98 % BMI (Body Mass Index) 18.9 kg/m2 06/15/2017 9:19am Body Temperature 98.2 F Weight 126.00 lb Heart Rate 86 /min BP Systolic 112 mmHg BP Diastolic 64 mmHg Respiratory Rate 16 /min Height 69 inches 5'9" O2 % BldC Oximetry 97 % BMI (Body Mass Index) 18.6 kg/m2 04/13/2017 11:42am Body Temperature 97.2 F Weight 126.00 lb Heart Rate 85 /min BP Systolic 120 mmHg BP Diastolic 78 mmHg Respiratory Rate 16 /min Height 69 inches 5'9" O2 % BldC Oximetry 96 % BMI (Body Mass Index) 18.6 kg/m2 04/13/2017 11:22am Respiratory Rate 16 /min Height 69 inches 5'9" 03/11/2017 10:41am Body Temperature 97.6 F Weight 126.00 lb Heart Rate 68 /min BP Systolic 118 mmHg BP Diastolic 64 mmHg Respiratory Rate 18 /min Height 69 inches 5'9" O2 % BldC Oximetry 98 % BMI (Body Mass Index) 18.6 kg/m2 03/09/2017 10:45am Body Temperature 98.3 F Weight 126.00 lb Heart Rate 85 /min BP Systolic 128 mmHg BP Diastolic 66 mmHg Respiratory Rate 18 /min Height 69 inches 5'9" O2 % BldC Oximetry 98 % BMI (Body Mass Index) 18.6 kg/m2 02/22/2017 2:10pm Body Temperature 98.5 F Weight 129.00 lb Heart Rate 86 /min BP Systolic 152 mmHg BP Diastolic 90 mmHg BP Systolic Recheck 148 mmHg BP Diastolic Recheck 88 mmHg Respiratory Rate 18 /min Height 69 inches 5'9" O2 % BldC Oximetry 98 % BMI (Body Mass Index) 19.0 kg/m2 02/15/2017 2:59pm Body Temperature 97.6 F Weight 128.00 lb Heart Rate 82 /min BP Systolic 116 mmHg BP Diastolic 62 mmHg Respiratory Rate 18 /min Height 69 inches 5'9" O2 % BldC Oximetry 98 % BMI (Body Mass Index) 18.9 kg/m2 02/02/2017 11:54am Body Temperature 98.5 F Weight 126.00 lb Heart Rate 84 /min BP Systolic 136 mmHg BP Diastolic 82 mmHg Height 69 inches 5'9" O2 % BldC Oximetry 98 % BMI (Body Mass Index) 18.6 kg/m2 12/09/2016 9:56am Body Temperature 97.8 F Weight 126.00 lb Heart Rate 88 /min BP Systolic 132 mmHg BP Diastolic 78 mmHg Respiratory Rate 20 /min Height 69 inches 5'9" O2 % BldC Oximetry 97 % BMI (Body Mass Index) 18.6 kg/m2 09/02/2016 11:05am Body Temperature 96.9 F Weight 128.00 lb Heart Rate 84 /min BP Systolic 100 mmHg BP Diastolic 70 mmHg Respiratory Rate 18 /min Height 69 inches 5'9" O2 % BldC Oximetry 98 % BMI (Body Mass Index) 18.9 kg/m2 06/11/2016 11:08am Body Temperature 98.3 F Heart Rate 89 /min BP Systolic 116 mmHg BP Diastolic 70 mmHg Respiratory Rate 16 /min Height 69 inches 5'9" O2 % BldC Oximetry 98 % Results Test Date Facility Test Result H/L Range Note CBC With Diff 10/13/2017 [facility] General WBC 5.5 10*3/uL (4.1-11.0) RBC 4.16 10*6/uL Low (4.60-6.10) HGB 14.1 g/dL (13.5-18.0) HCT 41.0 % (41.0-53.0) MCV 98.7 fL High (80.0-95.0) MCH 34.1 pg High (27.0-32.0) MCHC 34.5 g/dL (32.0-36.0) RDW 13.2 % (10.5-14.5) PLT 187 10*3/uL (150-450) MPV 7.4 fL (7.1-10.7) Neut % 68.1 % (35.0-75.0) Lymph % 21.9 % (16.0-52.0) [place] % 8.5 % High (0.0-8.0) Eos % 1.1 % (0.0-5.0) Baso % 0.4 % (0.0-4.0) Neut # 3.8 10*3/uL (1.8-7.7) Lymph # 1.2 10*3/uL (1.2-4.8) [place] # 0.5 10*3/uL (0.0-0.8) Eos # 0.1 10*3/uL (0.0-0.5) Baso # 0.0 10*3/uL (0.0-0.2) CBC With Auto Diff 09/08/2017 [facility] WBC 4.7 K/uL 4.1-11.0 1 RBC 3.87 M/uL Low 4.60-6.10 Hemoglobin 13.4 gm/dL Low 13.5-18.0 Hematocrit 38.2 % Low 41.0-53.0 MCV 98.8 fL High 80.0-97.0 MCH 34.7 pg High 27.0-32.0 MCHC 35.1 g/dL 32.0-36.0 RDW 13.0 % 11.5-14.5 PLT Count 189 K/ul 140-400 MPV 7.8 FL 7.1-10.7 Neutrophil 66.7 % 35.0-75.0 Lymphocyte 22.7 % 16.0-52.0 Monocyte 8.8 % 2.0-10.0 Eosinophil 1.3 % 0.0-5.0 Basophil 0.5 % 0.0-4.0 Abs Neutrophils 3.1 K/uL 2.1-8.0 Abs Lymphocytes 1.1 K/uL 0.8-5.5 Abs Monocytes 0.4 K/uL 0.1-1.0 Abs Eosinophils 0.1 K/uL 0.0-0.5 Abs Basophils 0.0 K/uL 0.0-0.3 Comprehensive Met Panel-FCMG 09/08/2017 [facility] Sodium 144 mmol/L 135- 146 2 Potassium 4.5 mmol/L 3.5-5.2 Chloride# 104 mmol/L 97-110 3 Carbon Dioxide 33 mmol/L 24-34 Glucose 77 mg/dL 70-105 BUN 17 mg/dL 6-26 Creatinine 0.8 mg/dL 0.5-1.4 Calcium 9.9 mg/dL 8.5-10.2 Total Protein 5.8 g/dL Low 6.0-8.0 Albumin 4.3 g/dL 3.6-4.9 Globulin 1.5 g/dL Low 2.0-3.5 A/G Ratio 2.9 Ratio High 1.0-2.2 Total Bilirubin 0.6 mg/dL 0.1-1.3 Alkaline Phosphatase 56 U/L 24-140 Alt 4 U/L 3-42 Ast 17 U/L 8-42 Li Egfr >60 >60 4 Non Li Egfr >60 >60 5 Anion Gap 7 mmol/L 5-15 6 Lipid 09/08/2017 [facility] Cholesterol 171 mg/dL 50-199 Triglycerides 74 mg/dL 30-200 HDL 58 mg/dL 29-71 7 Chol/ HDL Ratio 2.9 ratio Low 4.0-6.7 VLDL 15 mg/dL 2-29 LDL (Calc) 98 mg/dL 20-99 8 Laboratory test finding 09/08/2017 [facility] TSH 1.05 uIU/mL 0.35-4.94 Vitamin B12 453 pg/mL 180-914 Vitamin D 25 Hydroxy 29 ng/mL Low 30-100 9 Iron Panel 11/25/2016 [facility] Iron, Total 66 g/dL 65-175 10 Transferrin 216.0 mg/dL 203.0-362.0 Tibc (calc) 302 g/dL 261-478 % Iron Saturation 21.8 % 13.0-45.0 Laboratory test finding 11/25/2016 [facility] TSH 0.75 uIU/mL 0.35-4.94 Vitamin B12 407 pg/mL 180-914 Vit D,25 Hydroxy 45 ng/mL 31-100 Lipid 11/25/2016 [facility] Cholesterol 172 mg/dL 50-199 Triglycerides 48 mg/dL 30-200 HDL 62 mg/dL - 11 Chol/ HDL Ratio 2.8 ratio Low 4.0-6.7 VLDL 10 mg/dL 2-29 LDL (Calc) 101 mg/dL High 20-99 12 Comprehensive Metabolic (CMP) 11/25/2016 [facility] Sodium 143 mmol/L 135- 146 13 Potassium 4.5 mmol/L 3.5-5.2 Chloride# 106 mmol/L 97-110 14 Carbon Dioxide 29 mmol/L 24-34 Glucose 86 mg/dL 70-105 BUN 27 mg/dL High 6-26 Creatinine 0.8 mg/dL 0.5-1.4 Calcium 9.3 mg/dL 8.5-10.2 Total Protein 5.9 g/dL Low 6.0-8.0 Albumin 4.1 g/dL 3.6-4.9 Globulin 1.8 g/dL Low 2.0-3.5 A/G Ratio 2.3 Ratio High 1.0-2.2 Total Bilirubin 0.5 mg/dL 0.1-1.3 Alkaline Phosphatase 55 U/L 24-140 Alt 5 U/L 3-42 Ast 17 U/L 8-42 Li Egfr >60 >60 15 Non Li Egfr >60 >60 16 Anion Gap 13 mmol/L 7-16 17 CBC With Auto Diff 11/25/2016 [facility] WBC 6.6 K/uL 4.1-11.0 RBC 3.82 M/uL Low 4.60-6.10 Hemoglobin 12.9 gm/dL Low 13.5-18.0 Hematocrit 38.4 % Low 41.0-53.0 MCV 100.5 fL High 80.0-97.0 MCH 33.7 pg High 27.0-32.0 MCHC 33.6 g/dL 32.0-36.0 RDW 13.2 % 11.5-14.5 PLT Count 193 K/ul 140-400 Neutrophil 70.6 % 35.0-75.0 Lymphocyte 18.6 % 16.0-52.0 Monocyte 9.2 % 2.0-10.0 Eosinophil 1.2 % 0.0-5.0 Basophil 0.4 % 0.0-4.0 Abs Neutrophils 4.7 K/uL 2.1-8.0 Abs Lymphocytes 1.2 K/uL 0.8-5.5 Abs Monocytes 0.6 K/uL 0.1-1.0 Abs Eosinophils 0.1 K/uL 0.0-0.5 Abs Basophils 0.0 K/uL 0.0-0.3 Comprehensive Metabolic (CMP) 06/11/2016 [facility] Sodium 140 mmol/L 134- 142 18 Potassium 4.0 mmol/L 3.5-5.2 Chloride 102 mmol/L 97-109 Carbon Dioxide 29 mmol/L 24-34 Glucose 149 mg/dL High 70-105 BUN 27 mg/dL High 6-26 Creatinine 0.7 mg/dL 0.5-1.4 Calcium 9.0 mg/dL 8.5-10.2 Total Protein 6.3 g/dL 6.0-8.0 Albumin 4.3 g/dL 3.6-4.9 Globulin 2.0 g/dL 2.0-3.5 A/G Ratio 2.2 Ratio 1.0-2.2 Total Bilirubin 0.4 mg/dL 0.1-1.3 Alkaline Phosphatase 70 U/L 24-140 Alt 19 U/L 3-42 Ast 18 U/L 8-42 Anion Gap 13 mmol/L 6-14 Li Egfr >60 >60 19 Non Li Egfr >60 >60 20 Lipid 06/11/2016 [place] Cholesterol 155 mg/dL 50-199 Triglycerides 113 mg/dL 30-200 HDL 60 mg/dL 29- 21 Chol/ HDL Ratio 2.6 ratio Low 4.0-6.7 VLDL 23 mg/dL 2-29 LDL (Calc) 72 mg/dL 20-99 22 Laboratory test finding 06/11/2016 [place] TSH 0.66 uIU/mL 0.35-4.94 Hepatitis C Virus Antibody NONREACTIVE Nonreactive CBC With Auto Diff 06/11/2016 [place] WBC 5.1 K/uL 4.1-11.0 RBC 3.76 M/uL Low 4.60-6.10 Hemoglobin 12.8 gm/dL Low 13.5-18.0 Hematocrit 37.2 % Low 41.0-53.0 MCV 98.9 fL High 80.0-97.0 MCH 34.1 pg High 27.0-32.0 MCHC 34.4 g/dL 32.0-36.0 RDW 13.5 % 11.5-14.5 PLT Count 220 K/ul 140-400 Neutrophil 71.9 % 35.0-75.0 Lymphocyte 19.8 % 16.0-52.0 Monocyte 7.2 % 2.0-10.0 Eosinophil 0.7 % 0.0-5.0 Basophil 0.4 % 0.0-4.0 Abs Neutrophils 3.7 K/uL 2.1-8.0 Abs Lymphocytes 1.0 K/uL 0.8-5.5 Abs Monocytes 0.4 K/uL 0.1-1.0 Abs Eosinophils 0.0 K/uL 0.0-0.5 Abs Basophils 0.0 K/uL 0.0-0.3 1 This sample is drawn by:earnestine 2 [...] High: 160-189 Very high: >189 Procedures Date Code Description Status 06/29/2018 012484463 Bone Mineral Density Test Completed 05/09/2018 [id number] Bone Mineral Density Test Completed 03/23/2018 00905 Electrocardiogram Complete Completed 03/11/2017 35954 Electrocardiogram Complete Completed 02/04/2017 [id number] Colonoscopy Completed 12/09/2016 83323 Electrocardiogram Complete Completed Encounters Type Date Location Provider Dx Diagnosis Office Visit 06/28/2018 [facility] Roosevelt Kuhn F79 Unspecified 10:00a Associates P, DO intellectual disabilities G20 Parkinson's disease R29.6 Repeated falls I10 Essential (primary) hypertension M85.80 Oth disrd of bone density and structure, unspecified site L30.9 Dermatitis, unspecified D64.9 Anemia, unspecified Office Visit 05/22/2018 [facility] Vito, S00.93xD Contusion of 10:40a Associates NORMAN Vick unspecified part of head, subsequent encounter I83.892 Varicose veins of l low extrem with other complications F71 Moderate intellectual disabilities R29.6 Repeated falls Office Visit 05/08/2018 9:30a [facility] Roosevelt Kuhn Z23 Encounter for Elba Heath, DO immunization L30.9 Dermatitis, unspecified F71 Moderate intellectual disabilities G20 Parkinson's disease I10 Essential (primary) hypertension Office Visit 03/23/2018 [facility] Roosevelt Kuhn M81.0 Age-related 9:00a Associates P, DO osteoporosis w/o current pathological fracture E03.9 Hypothyroidism, unspecified F70 Mild intellectual disabilities I10 Essential (primary) hypertension L30.9 Dermatitis, unspecified Z12.11 Encounter for screening for malignant neoplasm of colon Office Visit 03/03/2018 1:00p [place] Roosevelt Garza F71 Moderate Associates P, DO intellectual disabilities R21 Rash and other nonspecific skin eruption R29.6 Repeated falls S81.011A Laceration without foreign body, RIGHT knee, init encntr Office Visit 12/22/2017 9:00a [place] Roosevelt Garza Z00.00 Encntr for Elba P, DO general adult medical exam w/o abnormal findings E03.9 Hypothyroidism, unspecified G20 Parkinson's disease I10 Essential (primary) hypertension F71 Moderate intellectual disabilities Office Visit 09/19/2017 1:30p [place] Roosevelt Garza G20 [facility] P, DO disease E78.5 Hyperlipidemia, unspecified D64.9 Anemia, unspecified R21 Rash and other nonspecific skin eruption F70 Mild intellectual disabilities I10 Essential (primary) hypertension Z23 Encounter for immunization Z12.11 Encounter for screening for malignant neoplasm of colon Office Visit 06/15/2017 [facility] Roosevelt Kuhn E03.9 Hypothyroidism, 9:15a Associates P, DO unspecified G20 Parkinson's disease E55.9 Vitamin D deficiency, unspecified R21 Rash and other nonspecific skin eruption F70 Mild intellectual disabilities I10 Essential (primary) hypertension Office Visit 04/13/2017 11:30a [facility] Roosevelt Kuhn R21 Rash and other Associates P, DO nonspecific skin eruption G20 Parkinson's disease F70 Mild intellectual disabilities I10 Essential (primary) hypertension E78.5 Hyperlipidemia, unspecified Office Visit 03/11/2017 10:30a [facility] Roosevelt Kuhn R21 Rash and other Associates P, DO nonspecific skin eruption G20 Parkinson's disease F70 Mild intellectual disabilities I10 Essential (primary) hypertension E03.9 Hypothyroidism, unspecified Office Visit 03/09/2017 [facility] Roosevelt Kuhn R21 Rash and other 10:30a Associates P, DO nonspecific skin eruption Office Visit 02/22/2017 [facility] Roosevelt Kuhn S01.01xD Laceration 2:00p Associates P, DO without foreign body of scalp, subs encntr G20 Parkinson's disease F70 Mild intellectual disabilities R29.6 Repeated falls I10 Essential (primary) hypertension Office Visit 02/15/2017 [facility] Roosevelt Kuhn S01.01xA Laceration 3:00p [facility] P, DO without foreign body of scalp, initial encounter G20 Parkinson's disease F70 Mild intellectual disabilities R29.6 Repeated falls Office Visit 02/02/2017 [facility] Michael Salgado, R41.82 Altered mental 11:40a Associates dAriane, EXTERNAL RELATIONS DIRECTOR status, unspecified G20 Parkinson's disease F70 Mild intellectual disabilities E03.9 Hypothyroidism, unspecified B35.3 Tinea pedis Office Visit 12/09/2016 10:00a [facility] Roosevelt Kuhn Z00.00 Encntr for Associates DO Ivana general adult medical exam w/o abnormal findings G20 Parkinson's disease F70 Mild intellectual disabilities I10 Essential (primary) hypertension E03.9 Hypothyroidism, unspecified E55.9 Vitamin D deficiency, unspecified E78.5 Hyperlipidemia, unspecified D64.9 Anemia, unspecified Z12.11 Encounter for screening for malignant neoplasm of colon Office Visit 09/02/2016 11:00a [facility] Roosevelt Kuhn G20 [facility] P, DO disease E03.9 Hypothyroidism, unspecified F70 Mild intellectual disabilities I10 Essential (primary) hypertension Office Visit 06/11/2016 11:00a [facility] Roosevelt Kuhn G20 [facility] P, DO disease H26.9 Unspecified cataract E03.9 Hypothyroidism, unspecified F70 Mild intellectual disabilities I10 Essential (primary) hypertension Z23 Encounter for immunization Z13.9 Encounter for screening, unspecified Z72.89 Other problems related to lifestyle Plan of Treatment Future Appointment(s):09/26/2018 11:00 am - Roosevelt Kuhn DO at [facility]07/19/2018 - Nava Padron [id number] Encounter for follow- up examination after completed treatmenComments:Pt here for ER follow up following 2 ER visits. Both were for falls with contusions/bruises on her head.BP was noted to be elevated during first ER visit. BP stable today. Contusions healing appropriately.R29.6 Repeated fallsComments:Patient continues to have recurrent falls at the house. Pt has parkinsons and it is likely contributing to freqeuncy of falls. Advised staff to schedule pt to be seen by his neurologist for evaluation of his treatment.K59.00 Constipation, unspecifiedNew Medication:Miralax - if no BM in 48 hours give pt 8 grams in 8 oz of fluidComments:pt self reports his BMs and is reporting them about once per week. Recommed the house start asking patient daily to remind him to report it. If no BM in 48 hrs give miralax.I10 Essential (primary) hypertensionComments :pt taking meds. had elevated BP in ER. Stable today. continue same regimen
--- OUTSIDE RECORDS SUMMARY | 2018-07-25 10:28 | XMS REPORT | Continuity of Care Document ---
:1945 External Reference #:[id number] Author Name Roosevelt Kuhn DO Address [address] [place] [address] Care Team Providers Name Role Phone Roosevelt Kuhn DO Primary Care Physician Unavailable Payers Type Date Identification Numbers Payment Provider Subscriber Effective: Policy Number: Medicare Carson Michel 1972 [id number] Group Name: [facility] [address] PayID: [id number] [place] [address] Effective: 2001 Policy Number: Medicaid ### Carson Michel [id number] PayID: [id number] [address] [place] [address] Advance Directives Description No Information Available Problems Date Description Provider Status Onset: 02/02/2017 Parkinson's disease Michael Salgado Active Adriane, [facility] Onset: 02/02/2017 Mild mental handicap Michael Salgado Active Adriane, [facility] [employer] Onset: 02/02/2017 Hypothyroidism Michael Salgado Active Adriane, [facility] [employer] Onset: 05/22/2018 Varicose veins of lower extremity [...] Form Strength Qnty SIG Indications Ordering Provider Shingrix 06/28 Active Suspension 50mcg/0.5 1unit give [...] 06/02 Active Solution 1.4% 00uni Instill 1 Nanavati, ts Drop In Each Digant Eye as MD Luis Directed as Needed For Irritation [facility] Zinc Oxide 04/25 Active Cream 1-10% 113gm [facility] , Roosevelt [facility], prevent DO breakdown twice daily as needed on buttocks Mapap 03/25 Active Tablets 325mg 00tab Take 2 Nanavati, s Tablets Digant (650MG) By MD Luis Mouth Every 4 Hours as Needed For Pain Or Fever >101 Or Discomfort *Max Daily Dose: 8 Calcium 12/28 Active Tablets 600-400mg 30tab take 1 tablet Hattie Carbonate-Lucia -Unit s by mouth , Roosevelt Heath, min D daily send DO 30 Bacitracin 12/28 Active Ointment 500Unit/G 00uni Apply 2 Times Hattie (External) /2016 M ts A Day as Roosevelt, Needed For DO Minor Cuts/ Wounds Until Healed Vitamins/[employer] 07/07 Active Tablets 30tab take 1 tablet Nanavati, als s by mouth Digant daily MD Luis Gabapentin 07/01 Active Capsules 300mg 30cap 1 by mouth at Hattie s bedtime , Roosevelt Heath, Trospium 07/01 Active Tablets 20mg 60tab 1 tab twice a Hattie Chloride s day , Roosevelt Heath, DO Levothyroxine 07/01 Active Tablets 50mcg 30tab 1 by mouth Hattie Sodium s every day , Roosevelt Heath, Restasis 07/01 Active Emulsion 0.05% 60uni 1 Drop In Hattie /2015 ts Each Eye , Roosevelt P, Twice A Day DO Propranolol 07/01 Active Tablets 20mg 60tab 1 by mouth Hattie HCL s twice a day , Roosevelt P, DO Calcitonin 07/01 Active Solution 200Unit/A 3.7un spray one Hattie ([place]) /2015 ct its spray in a , Roosevelt P, nostril every DO day, alternate nostrils daily. Carbidopa-Levo Active Tablets ER 50-200mg 1 by mouth Unknown dopa ER /0000 nightly @ 9:00PM Stool Softener Active Capsules 100mg 1 by mouth Unknown 0000 twice a day Lamotrigine Active Tablets 100mg 1 by mouth Unknown every day @ bedtime Senna Active Tablets 8.6mg take two tablets by mouth at bedtime Rytary Active Capsules ER 36.25-145 3 caps tid mg Buspirone HCL Active Tablets 10mg 1 [...] daily Hattie Phosphate to affected , Roosevelt P, - area DO 06/15 Doxycycline 04/13 Hx Capsules 100mg 28cap take 1 tablet Hattie Hyclate /2016 s twice a day , Roosevelt P, - for 14 days DO 06/15 Amoxicillin 03/09 Hx Capsules 500mg 14cap 1 capsule R21 s twice a day , Roosevelt P, - for 7 days DO 06/15 Multi Vitamin 07/01 Hx Tablets 30tab 1 by mouth Hattie Daily /2015 s every day , Roosevelt P, - DO 07/07 Calcium 600-D 07/01 Hx Tablets 600-400mg 30tab 1 tab by Hattie /2015 -Unit s mouth daily. , Roosevelt P, - DO 12/28 Chlorhexidine 07/01 Hx Solution 0.12% 118un use 15 Hattie Gluconate its milliliters , Roosevelt P, - up to two DO 11/10 times a day /2017 Aspirin Ec Low 07/[address] 81mg 30tab Take 1 Tablet Nanavati, Dose s By Mouth Digant - Daily *DO Meghana Smith MD 12/05 Crush Or Chew* Preservision 07/01 Hx Capsules Areds 2 60cap 1 By Mouth Nanavati, Areds s Twice A Day Cristina Smith MD 05/03 Carbidopa-Levo 00 Hx Tablets 25-100mg take 1 07/26 Unknown dopa /0000 tabs by mouth - every 2 hours 06/15 from 6:30Am to 6:30PM Immunizations CPT Code Status Date Vaccine Reaction Lot # [id number] Given 05/08/2018 Fluzone Highdose Age 65 And Im inj completed, Pt [id number] Over Preservative & tolerated well Antibiotic Free 30243 Given 09/19/2017 Prevnar 13 Pneumococal Pt tolerated well [id number] Conjugate Vaccine 72979 Given 09/19/2017 Fluzone Highdose Age 65 And Pt tolerated well [id number] Over Preservative & Antibiotic Free 99319 Given 06/11/2016 Fluzone Highdose Age 65 And [id number] Over Preservative & Antibiotic Free 30244 Given 09/27/2014 Tdap (Adacel) Ages 7 And Above Only Vital Signs Date Vital Result Comment 06/28/2018 9:54am Body Temperature 98.6 F Weight [...] H/L Range Note CBC With Diff 10/13/2017 [facility] General WBC 5.5 10*3/uL (4.1-11.0) RBC 4.16 10*6/uL Low (4.60-6.10) HGB 14.1 g/dL (13.5-18.0) HCT 41.0 % (41.0-53.0) MCV 98.7 fL High (80.0-95.0) MCH 34.1 pg High (27.0-32.0) MCHC 34.5 g/dL (32.0-36.0) RDW 13.2 % (10.5-14.5) PLT 187 10*3/uL (150-450) MPV 7.4 fL (7.1-10.7) Neut % 68.1 % (35.0-75.0) Lymph % 21.9 % (16.0-52.0) Moffat % 8.5 % High (0.0-8.0) Eos % 1.1 % (0.0-5.0) Baso % 0.4 % (0.0-4.0) Neut # 3.8 10*3/uL (1.8-7.7) Lymph # 1.2 10*3/uL (1.2-4.8) Moffat # 0.5 10*3/uL (0.0-0.8) Eos # 0.1 10*3/uL (0.0-0.5) Baso # 0.0 10*3/uL (0.0-0.2) CBC With Auto Diff 09/08/2017 [place] WBC 4.7 K/uL 4.1-11.0 1 RBC 3.87 [...] mg/dL 20-99 8 Laboratory test finding 09/08/2017 [place] TSH 1.05 uIU/mL 0.35-4.94 Vitamin B12 453 pg/mL 180-914 Vitamin D 25 Hydroxy 29 ng/mL Low 30-100 9 Iron Panel 11/25/2016 [place] Iron, Total 66 g/dL 65-175 10 Transferrin 216.0 mg/dL 203.0-362.0 Tibc (calc) 302 g/dL 261-478 % Iron Saturation 21.8 % 13.0-45.0 Laboratory test finding 11/25/2016 [place] TSH 0.75 uIU/mL 0.35-4.94 Vitamin B12 407 pg/mL 180-914 Vit D,25 Hydroxy 45 ng/mL 31-100 Lipid 11/25/2016 [place] Cholesterol 172 mg/dL 50-199 Triglycerides 48 mg/dL 30-200 HDL 62 mg/dL -71 11 Chol/ HDL Ratio 2.8 ratio Low 4.0-6.7 VLDL 10 mg/dL 2-29 LDL (Calc) 101 mg/dL High 20-99 12 Comprehensive Metabolic (CMP) 11/25/2016 [place] Sodium 143 mmol/L 135- 146 13 Potassium [...] 7-16 17 CBC With Auto Diff 11/25/2016 [place] WBC 6.6 K/uL 4.1-11.0 RBC 3.82 M/uL [...] 0.0 K/uL 0.0-0.3 Comprehensive Metabolic (CMP) 06/11/2016 [place] Sodium 140 mmol/L 134- 142 18 Potassium [...] high: >189 Procedures Date Code Description Status 05/09/2018 593317142 Bone Mineral Density Test Completed 03/23/2018 60550 Electrocardiogram Complete Completed 03/11/2017 53528 Electrocardiogram Complete Completed 02/04/2017 88381798 Colonoscopy Completed 12/09/2016 12108 Electrocardiogram Complete Completed Encounters Type Date Location Provider Dx Diagnosis [facility] Visit 05[facility]22/2018 [facility] Contusion of 10:40a NORMAN Telles unspecified part of head, subsequent encounter I83.892 Varicose veins of l low extrem with other complications F71 Moderate intellectual disabilities R29.6 Repeated falls Office Visit 05/08/2018 9:30a [place] Roosevelt Garza Z23 Encounter for Associates P, DO immunization L30.9 Dermatitis, unspecified F71 Moderate intellectual disabilities G20 Parkinson's disease I10 Essential (primary) hypertension Office Visit 03/23/2018 [place] Roosevelt Garza M81.0 Age-related 9:00a Associates P, DO osteoporosis w/o current pathological fracture E03.9 Hypothyroidism, unspecified F70 Mild intellectual disabilities I10 Essential (primary) hypertension L30.9 Dermatitis, unspecified Z12.11 Encounter for screening for malignant neoplasm of colon Office Visit 03/03/2018 1:00p oRosevelt Yates F71 Moderate Associates P, DO intellectual disabilities R21 Rash and other nonspecific skin eruption R29.6 Repeated falls S81.011A Laceration without foreign body, RIGHT knee, init encntr Office Visit 12/22/2017 9:00a Roosevelt Yates Z00.00 Encntr for Associates P, DO general adult medical exam w/o abnormal findings E03.9 Hypothyroidism, unspecified G20 Parkinson's disease I10 Essential (primary) hypertension 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 Moderate intellectual disabilities Office Visit 09/19/2017 1:30p Roosevelt Yates G20 [facility] P, DO disease E78.5 Hyperlipidemia, unspecified D64.9 Anemia, unspecified R21 Rash and other nonspecific skin eruption F70 Mild intellectual disabilities I10 Essential (primary) hypertension Z23 Encounter for immunization Z12.11 Encounter for screening for malignant neoplasm of colon Office Visit 06/15/2017 Roosevelt Yates E03.9 Hypothyroidism, 9:15a Associates P, DO unspecified G20 Parkinson's disease E55.9 Vitamin D deficiency, unspecified R21 Rash and other nonspecific skin eruption F70 Mild intellectual disabilities I10 Essential (primary) hypertension Office Visit 04/13/2017 11:30a Roosevelt Yates R21 Rash and other Associates P, DO nonspecific skin eruption G20 Parkinson's disease F70 Mild intellectual disabilities I10 Essential (primary) hypertension E78.5 Hyperlipidemia, unspecified Office Visit 03/11/2017 10:30a [facility] Roosevelt Kuhn R21 Rash and other Associates P, DO nonspecific skin eruption G20 Parkinson's disease F70 Mild intellectual disabilities I10 Essential (primary) hypertension E03.9 Hypothyroidism, unspecified Office Visit 03/09/2017 [facility] Roosevelt Kuhn R21 Rash and other 10:30a Associates P, DO nonspecific skin eruption Office Visit 02/22/2017 [facility] Roosevelt Kuhn S01.01xD Laceration 2:00p Associates P, DO without foreign body of scalp, subs encntr G20 Parkinson's disease F70 Mild intellectual disabilities R29.6 Repeated falls I10 Essential (primary) hypertension Office Visit 02/15/2017 [facility] Roosevelt Kuhn S01.01xA Laceration 3:00p Associates P, DO without foreign body of scalp, initial encounter G20 Parkinson's disease F70 Mild intellectual disabilities R29.6 Repeated falls Office Visit 02/02/2017 [facility] Michael Salgado, R41.82 Altered mental 11:40a Associates Adriane, [facility] [employer] status, unspecified G20 Parkinson's disease F70 Mild intellectual disabilities E03.9 Hypothyroidism, unspecified B35.3 Tinea pedis Office Visit 12/09/2016 10:00a [facility] Roosevelt Kuhn Z00.00 Encntr for Associates P, DO general adult medical exam w/o abnormal findings G20 Parkinson's disease F70 Mild intellectual disabilities I10 Essential (primary) hypertension E03.9 Hypothyroidism, unspecified E55.9 Vitamin D deficiency, unspecified E78.5 Hyperlipidemia, unspecified D64.9 Anemia, unspecified Z12.11 Encounter for screening for malignant neoplasm of colon Office Visit 09/02/2016 11:00a [facility] Roosevelt Kuhn G2Efraín [facility] P, DO disease E03.9 Hypothyroidism, unspecified F70 Mild intellectual disabilities I10 Essential (primary) hypertension Office Visit 06/11/2016 11:00a [facility] Roosevelt Kuhn Parkinson's [place]ba P, DO disease H26.9 Unspecified cataract E03.9 Hypothyroidism, unspecified F70 Mild intellectual disabilities I10 Essential (primary) hypertension Z23 Encounter for immunization Z13.9 Encounter for screening, unspecified Z72.89 Other problems related to lifestyle Plan of Treatment Future Appointment(s):09/26/2018 11:00 am - Roosevelt Kuhn, at [facility]06/28/2018 - Roosevelt Kuhn, DOF79 Unspecified intellectual disabilitiesComments:Currently stable. He is to continue to follow with neurology with appointment in 2 weeks. We will continue to monitor.G20 Parkinson's diseaseComments:Currently stable. He is to continue to follow with neurology with appointment in 2 weeks. We will continue to monitor.R29.6 Repeated fallsComments:Health critical care nurse practitioner denies recent falls. He continues excellent home care.I10 Essential (primary) hypertensionComments: Currently controlled. Continue current regimen. We will continue to monitor.M85.80 Other specified disorders of bone density and structure, unspecified siteNew Xrays:Bone Density, Ordered: 06/28/18Comments:Recent Dexa scan reviewed in detail with health critical care nurse practitioner. He is continue on calcitonin, vitamin D, and calcium.L30.9 Dermatitis, unspecifiedComments:Remains at baseline. Continue proper hygiene. We will continue to monitor.D64.9 Anemia, unspecifiedComments:Recent ER blood work reviewed in detail. We will continue to monitor.AllNew Medication:Shingrix 50 mcg/0.5ML - give as directed and send documentation to primary care physicianFollow up:The patient will follow up in three months with CBC, CMP, TSH, Lipids, vitamin D. Blood work mailed 3 weeks prior to appointment.
[2018-07-25 10:32] VITALS: BP 115/67
--- NOTE | 2018-07-25 10:49 | UC ---
Lower Extremity/Ankle HPI - HPI Summary HPI Summary: right ankle / right foot pain / injury x 1 day s/p fall yesterday injury to his face and right foot and right ankle pt. was taken to [facility] , he was evaluated for his face injury , c/o swelling of the right foot and right ankle, no xray was taken at the hospital pt. lives at a [facility] , certified caregiver claims that the pt. has been having frequent falls - History of Current Complaint Chief Complaint: UCLowerExtremity Stated Complaint: RIGHT ANKLE,RIGHT HIP INJURIES (FALL) Time Seen by Provider: 07/25/18 10:32 Hx Obtained From: Patient, Family/Conference Services Director Onset/Duration: Gradual Onset, Lasting Days - 1, Still Present Severity Initially: Moderate Severity Currently: Moderate Pain Intensity: 0 Aggravating Factor(s): Ambulation Alleviating Factor(s): Nothing Able to Bear Weight: No - Allergies/Home Medications Allergies/Adverse Reactions: Allergies Allergy/AdvReac Type Severity Reaction Status Date / Time No Known Allergies Allergy Verified 07/25/18 10:31 Home Medications: Home Medications Acetaminophen TAB* [Tylenol TAB*] 650 mg PO Q4H PRN 07/25/18 [History Confirmed 07/25/18] Calcium Carbonate/Vitamin D3 [Calcium 600 + Vit D Tablet] 1 each PO DAILY [History Confirmed 07/25/18] Carbidopa/Levodopa 36.25-145mg [Rytary ER 36.25 mg-145 mg Cap] 3 cap PO TID 08/12 [History Confirmed 07/25/18] Cyclosporine 0.05% OPHTH (NF) [Restasis 0.05% OPHTH] 1 drop BOTH EYES BID [History Confirmed 07/25/18] Guaifenesin/Dextromethorphan [Tussin Dm Liquid] 10 ml PO Q4H PRN 07/25/18 [ History Confirmed 07/25/18] Mag Hydrox/Aluminum Hyd/Simeth [Antacid M Liquid] 15 ml PO Q4H PRN 07/25/18 [ History Confirmed 07/25/18] Senna TAB* [Senokot TAB*] 2 tab PO BEDTIME 07/25/18 [History Confirmed 07/25/18] PMH/Surg Hx/FS Hx/Imm Hx - Additional Past Medical History Additional PMH: parkinsons, osteopenia, hemorhoids, cataracts, anxiety, dementia, moderate I.D. Endocrine History: Hypothyroidism Cardiovascular History: Hypertension - Surgical History Surgical History: Yes Surgery Procedure, Year, and Place: 1976 HERNIA; BILAT INGUINAL HERNIA 11/20-2006; RT INGUINAL HERNIA 02/2010 - Family History Known Family History: Positive: Unknown - Social History Alcohol Use: None Substance Use Type: None Smoking Status (MU): Never Smoked Tobacco Review of Systems All Other Systems Reviewed And Are Negative: Yes Constitutional: Positive: Negative Skin: Positive: Negative Eyes: Positive: Negative ENT: Positive: Negative Is Patient Immunocompromised?: No Physical Exam Triage Information Reviewed: Yes Appearance: No Pain Distress, Well-Nourished Vital Signs: Initial Vital Signs Temp 96.5 F 07/25/18 10:28 Pulse 77 07/25/18 10:28 Resp 18 07/25/18 10:28 BP 115/67 07/25/18 10:28 Pulse Ox 100 07/25/18 10:28 Vital Signs Reviewed: Yes Eyes: Positive: Conjunctiva Clear ENT: Positive: Normal ENT inspection, Hearing grossly normal, Pharynx normal, Pharyngeal erythema Neck: Positive: Supple, Nontender, No Lymphadenopathy Respiratory: Positive: Chest non-tender, Lungs clear, Normal breath sounds Cardiovascular: Positive: RRR, No Murmur, Pulses Normal Abdomen Description: Positive: Nontender, No Organomegaly. Negative: CVA Tenderness (R), CVA Tenderness (L), Distended, Guarding Bowel Sounds: Positive: Present Musculoskeletal: Positive: Other: - right foot / ankle : + swelling, + ecchymosis, no tenderness, moving the anklt and the foot well Diagnostics - Laboratory Diagnostic Studies Completed/Ordered: right foot/ ankle xray : IMPRESSION: SOFT TISSUE SWELLING. NO ACUTE OSSEOUS INJURY. IF SYMPTOMS PERSIST, RECOMMEND REPEAT. IMAGING. Lower Extremity Course/Dx - Differential Dx/Diagnosis Provider Diagnosis: Right foot sprain Discharge - Sign-Out/Discharge Documenting (check all that apply): Patient Departure All imaging exams completed and their final reports reviewed: Yes - Discharge Plan Condition: Stable Disposition: HOME Patient Education Materials: Foot Sprain (ED) Referrals: Cristina Michelle MD [Primary Care Provider] - 7 Days - Billing Disposition and Condition Condition: STABLE Disposition: Home
== END 2018-07-25 11:26 | disposition home or self-care (01) ==
LOC: UCCORT 10:02
DX: S93.601D Unspecified sprain of right foot, subsequent encounter (principal); W19.XXXD Unspecified fall, subsequent encounter; I10 Essential (primary) hypertension; G20 Parkinson's disease; M85.80 Other specified disorders of bone density and structure, unspecified site
CPT/HCPCS: 99212; G0463

== ENCOUNTER 2018-09-14 15:27 | Emergency (ER) | payer MEDICARE, MEDICAID ==
[2018-09-14 15:59] VITALS: BP 165/89
--- NOTE | 2018-09-14 16:18 | ED ---
Throat Pain/Nasal Congestion - HPI Summary HPI Summary: resident of adult home, noted to have white spots on tongue, No recent change in appetite, no trouble swallowing , no recent antibiotics or steroids used - History of Current Complaint Chief Complaint: UCSkin Time Seen by Provider: 09/14/18 15:59 Hx Obtained From: Patient Hx From Patient Unobtainable Due To: Altered Mental Status Onset/Duration: Still Present Severity: Mild Associated Signs And Symptoms: Positive: Negative - Epiglottits Risk Factors Epiglottis Risk Factors: Negative - Allergies/Home Medications Allergies/Adverse Reactions: Allergies Allergy/AdvReac Type Severity Reaction Status Date / Time No Known Allergies Allergy Verified 09/14/18 15:59 PMH/Surg Hx/FS Hx/Imm Hx Previously Healthy: No - hx. of parkinsons Endocrine/Hematology History: Reports: Hx Thyroid Disease Cardiovascular History: Reports: Hx Hypertension Respiratory History: Reports: Hx Chronic Obstructive Pulmonary Disease (COPD) Psychiatric History: Reports: Hx Anxiety - Surgical History Surgery Procedure, Year, and Place: 1976 HERNIA; BILAT INGUINAL HERNIA 11/20-2006; RT INGUINAL HERNIA 02/2010 Infectious Disease History: No Infectious Disease History: Denies: Traveled Outside the [place] in Last 30 Days - Family History Known Family History: Positive: Unknown - Social History Alcohol Use: None Substance Use Type: Reports: None Smoking Status (MU): Never Smoked Tobacco Review of Systems Constitutional: Negative Eyes: Negative Positive: Other - whitish deposits on tongue Respiratory: Negative Gastrointestinal: Negative Genitourinary: Negative All Other Systems Reviewed And Are Negative: Yes Physical Exam Triage Information Reviewed: Yes Vital Signs On Initial Exam: Initial Vitals Temp Pulse Resp BP Pulse Ox 36.4 C 84 16 165/89 99 09/14/18 15:56 09/14/18 15:56 09/14/18 15:56 09/14/18 15:56 09/14/18 15:56 Vital Signs Reviewed: Yes Completion Of Physical Exam Limited Due To: Dementia Appearance: Positive: Thin, Cachectic Skin: Positive: Warm, Dry Head/Face: Positive: Normal Head/Face Inspection Eyes: Positive: Normal ENT: Positive: Other - tongue with white coating, no lesions seen in the rest of the pharynx Neck: Positive: Supple Respiratory/Lung Sounds: Positive: Clear to Auscultation Cardiovascular: Positive: Normal Abdomen Description: Positive: Nontender Diagnostics - Vital Signs Vital Signs Temp Pulse Resp BP Pulse Ox 09/14/18 15:56 36.4 C 84 16 165/89 99 - Laboratory Lab Statement: Any lab studies that have been ordered have been reviewed, and results considered in the medical decision making process. EENT Course/Dx - Diagnoses Provider Diagnoses: Infection due to Malassezia species Discharge - Sign-Out/Discharge Documenting (check all that apply): Patient Departure All imaging exams completed and their final reports reviewed: No Studies - Discharge Plan Condition: Fair Disposition: HOME Patient Education Materials: Geographic Tongue (ED) Referrals: Cristina Michelle MD [Primary Care Provider] - - Billing Disposition and Condition Condition: FAIR Disposition: Home
== END 2018-09-14 16:37 | disposition home or self-care (01) ==
LOC: UCCORT 15:27
DX: B48.8 Other specified mycoses (principal); I10 Essential (primary) hypertension; J44.9 Chronic obstructive pulmonary disease, unspecified
CPT/HCPCS: 87102; 99212; G0463

== ENCOUNTER 2019-04-19 20:32 | Emergency (ER) | payer MEDICARE, MEDICAID ==
--- OUTSIDE RECORDS SUMMARY | 2019-04-19 20:54 | XMS REPORT | Continuity of Care Document ---
:1945 External Reference #:[id number] Author Name Cristina Michelle MD Address [address] [place] [address] Care Team Providers Name Role Phone Cristina Michelle MD - Family Medicine Care Team Information Dog Warden [phone] Varinder Chung DPM - Pattern Generator Operator Care Team Information Dog Warden Carson Stanton MD - Neurology Care Team Information Dog Warden [phone] Problems Active Problems Provider Date Parkinson's disease Adriane Ruiz NP Onset: 02/02/2017 Mild mental handicap Adriane Ruiz NP Onset: 02/02/2017 Hypothyroidism Adriane Ruiz NP Onset: 02/02/2017 Varicose veins of lower extremity Nava Padron PA Onset: 05/22/2018 Moderate intellectual disability Nava Padron PA Onset: 05/22/2018 Nervous system symptoms Nava Padron PA Onset: 05/22/2018 Social History Type Date Description Comments Sex Unknown Tobacco Use Reviewed: 08/17/18 Patient has never smoked Smoking Status Reviewed: 04/06/19 Patient has never smoked Allergies, Adverse Reactions, Alerts Description No Known Drug Allergies Medications Active Medications SIG Qnty Indications Ordering Date Provider Enema Administer 1 enema 133ml Hattie, 11/21/2018 Enema today day 4 of no Roosevelt P DO BM, notify doctor if small or no result Shingrix give as directed and 1units Hattie, 09/26/2018 50mcg/0.5ML send documentation Roosevelt P DO Suspension Rec to primary care physician Pneumovax 23 give and document .500ml Hattie, 09/26/2018 for the office Roosevelt P, DO 25mcg/0.5ML Injection Miralax if no bowel movement 510units K59.00 [facility], 07/19/2018 Powder in 2 days give Roosevelt P, DO patient 17gm in 8 oz of fluid, repeat dose on day 3 if no results call doctor on day 4 if no results Preservision Areds 2 Take 1 Capsule By 60caps Miguel Angel, 05/03/2018 Mouth Two Times A Cristina Smith MD Areds 2 Capsules Day QC Aspirin Low Dose Take 1 Tablet By 30tabs Miguel Angel, 05/03/2018 Mouth Daily *DO Not Cristina Smith MD 81mg Tablets DR Crush Or Chew* Artificial Tears Instill 1 Drop In Yokastalenorajohan, 06/02/2017 1.4% Each Eye as Directed Cristina Smith MD Solution as Needed For Irritation [facility] Zinc Oxide to be placed on skin 113gm [facility], 04/25/2017 Diaper to prevent breakdown Roosevelt P, DO 1-10% Cream twice daily as needed on buttocks Mapap take 2 tablets 60tabs Thanh, 03/25/2017 325mg Tablets (650mg) by mouth Cristina Smith MD every 4 hours as needed for pain or fever >101 or discomfort *max daily dose: 8 Calcium Take 1 Tablet By 30tabs Miguel Angel, 12/28/2016 Carbonate-Vitamin D Mouth Daily Cristina Smith MD [id number] Tablets Bacitracin Apply 2 Times A Day Hattie, 12/28/2016 (External) as Needed For Minor Roosevelt P, DO 500Unit/GM Cuts/ Wounds Until Ointment Healed Vitamins/Minerals Take 1 Tablet By 30tabs Miguel Angel, 07/07/2016 Mouth Daily Cristina Smith MD Tablets Calcitonin (Conrath) instill 1 spray in 3.7units Thanh, 07/01/2016 alternating nostrils Cristina Smith MD 200Unit/Act Solution daily *refrigerate until use* *discard & replace 35 days after opening Propranolol HCL Take 1 Tablet By 60tabs Hattie, 07/01/2016 20mg Mouth 2 Times Daily Roosevelt P, DO Tablets Restasis 1 drop in each eye 60un Miguel Angel, 07/01/2016 0.05% twice a day Cristina Smith MD Emulsion Levothyroxine Sodium Take 1 Tablet By 30tabs Hattie, 07/01/2016 Mouth Daily Roosevelt Heath DO 50mcg Tablets Trospium Chloride Take 1 Tablet By 60tabs Miguel Angel, 07/01/2016 Mouth 2 Times Daily Cristina Smith MD 20mg Tablets Gabapentin 1 by mouth at 30caps Hattie, 07/01/2016 300mg bedtime Roosevelt Heath DO Capsules Carbidopa-Levodopa 1 by mouth nightly @ Unknown ER 9:00PM 50-200mg Tablets ER Stool Softener 1 by mouth twice a Unknown 100mg day Capsules Lamotrigine 1 by mouth every day Unknown 100mg @ bedtime Tablets Senna take two tablets by Unknown 8.6mg Tablets mouth at bedtime Rytary 3 caps tid Unknown 36.25-145mg Capsules ER Buspirone HCL 1 by mouth twice a Unknown 10mg day Tablets Tussin 10 ml PO q4h prn Unknown 100mg/5ML Liquid Nystatin 5 cubic centimeters 120ml Miguel Angel, swished and Cristina Smith MD [id number] swallowed four times Suspension a day History Medications Lorazepam 1 by mouth 1 hour 1tabs Roosevelt Kuhn, 01/15/2019 - 1mg prior to dental DO 01/29/2019 Tablets procedure may repeat with half a tablet Watch For Over Sedation Lorazepam 1 tablet by mouth 1 7tabs Roosevelt Kuhn, 12/28/2018 - 2mg hour prior to DO 01/15/2019 Tablets dental work Enema one by way of 2units Roosevelt Kuhn, 11/21/2018 - 7-19GM/118ML rectum q4days if no DO 11/21/2018 Enema results (no or small bm) from Miralax. notify if no results Immunizations CPT Code Status Date Vaccine Reaction Lot # [id number] Given 05/08/2018 Fluzone Highdose Age 65 And Im inj completed, Pt [id number] Over Preservative & tolerated well Antibiotic Free [id number] Given 09/19/2017 Prevnar 13 Pneumococal Pt tolerated well [id number] Conjugate Vaccine 45924 Given 09/19/2017 Fluzone Highdose Age 65 And Pt tolerated well [id number] Over Preservative & Antibiotic Free 13939 Given 06/11/2016 Fluzone Highdose Age 65 And [id number] Over Preservative & Antibiotic Free 10475 Given 09/27/2014 Tdap (Adacel) Ages 7 And Above Only Vital Signs Date Vital Result Comment 04/06/2019 10:51am Body Temperature 98.2 F Weight 120.00 lb staff calling house Heart Rate 66 /min BP Systolic 110 mmHg BP Diastolic 80 mmHg Respiratory Rate 16 /min Height 69 inches 5'9" O2 % BldC Oximetry 97 % BMI (Body Mass Index) 17.7 kg/m2 01/15/2019 11:23am Body Temperature 98.0 F Weight 117.00 lb Heart Rate 82 /min BP Systolic 106 mmHg BP Diastolic 60 mmHg Respiratory Rate 20 /min Height 69 inches 5'9" O2 % BldC Oximetry 98 % BMI (Body Mass Index) 17.3 kg/m2 Results Test Date Facility Test Result H/L Range Note CBC with Auto [facility]cmg [facility] W[facility] 5.0 K/uL 4.1-11.0 1 RBC 4.23 M/uL Low 4.60-6.10 Hemoglobin 14.1 gm/dL 13.5-18.0 Hematocrit 41.0 % 41.0-53.0 MCV 97.0 fL 80.0-97.0 MCH 33.4 pg High 27.0-32.0 MCHC 34.4 g/dL 32.0-36.0 RDW 13.3 % 11.5-14.5 PLT Count 219 K/ul 140-400 MPV 7.7 FL 7.1-10.7 Neutrophil 64.9 % 35.0-75.0 Lymphocyte 25.3 % 16.0-52.0 Monocyte 8.4 % 2.0-10.0 Eosinophil 1.1 % 0.0-5.0 Basophil 0.3 % 0.0-4.0 Abs Neutrophils 3.3 K/uL 2.1-8.0 Abs Lymphocytes 1.3 K/uL 0.8-5.5 Abs Monocytes 0.4 K/uL 0.1-1.0 Abs Eosinophils 0.1 K/uL 0.0-0.5 Abs Basophils 0.0 K/uL 0.0-0.3 Comprehensive Met Panel-FCMG 04/06/2019 [place] Sodium 144 mmol/L 135- 146 2 Potassium 4.8 mmol/L 3.5-5.2 Chloride# 103 mmol/L 97-110 3 Carbon Dioxide 28 mmol/L 24-34 Calcium 9.4 mg/dL 8.5-10.5 4 Glucose 115 mg/dL High 70-105 BUN 15 mg/dL 6-26 Creatinine 0.7 mg/dL 0.5-1.4 Total Protein 6.1 g/dL 6.0-8.0 Albumin 4.1 g/dL 3.6-4.9 Globulin 2.0 g/dL 2.0-3.5 A/G Ratio 2.1 Ratio 1.0-2.2 Total Bilirubin 0.5 mg/dL 0.1-1.3 Alkaline Phosphatase 69 U/L 24-140 Alt 15 U/L 3-42 Ast 23 U/L 8-42 Anion Gap 13 mmol/L 5-15 5 Female Egfr 85 >60 6 Male Egfr 93 >60 7 Laboratory test finding 04/06/2019 [place] TSH 0.72 uIU/mL 0.35-4.94 Lipid 04/06/2019 [place] Cholesterol 175 mg/dL 50-199 Triglycerides 205 mg/dL High 30-200 HDL 45 mg/dL 29-71 8 Chol/ HDL Ratio 3.9 ratio Low 4.0-6.7 VLDL 41 mg/dL High 2-29 LDL (Calc) 89 mg/dL 20-99 9 Laboratory test finding 04/06/2019 [place] Vitamin D 25 Hydroxy 32 ng/mL 30-100 10 Vitamin B12 513 pg/mL 180-914 CBC With Auto 01/11/2019 [facility] White Blood 6.0 K/uL Normal 3.4-10.5 11 Diff (315)- - Count Red Blood Count 4.00 M/uL Low 4.20-5.80 Hemoglobin 13.6 gm/dL Normal 12.8-17.0 Hematocrit 39.9 % Normal 38.0-48.0 Mean Cell Volume 99.8 fl High 80.0-96.0 Mean Corpuscular HGB 34.0 pg High 27.0-33.0 Mean Corpuscular HGB Conc 34.1 g/dL Normal 31.7-36.0 Platelet Count 188 K/uL Normal 155-360 Red Cell Distri Width SD 46.2 fl Normal 36-51 Red Cell Distri Width %CV 12.4 % Normal 11.6-15.8 Mean Platelet Volume 9.0 fl Normal 6.6-10.6 Neut% 71.5 % Normal 33.0-73.0 Lymph % 13.9 % Low 20.0-42.0 [place] % 13.1 % High 0.0-10.0 Eo% 0.8 % Normal 0.0-6.6 Bas% 0.2 % Normal 0.0-1.1 Immature Grans 0.5 % Normal 0.0-5.0 NRBC % 0.0 /100WBC < 10/ 100 WBC Neut# 4.26 K/uL Normal 1.8-7.0 Lymph # 0.83 K/uL Low 1.0-4.0 [place] # 0.78 K/uL Normal 0.0-0.8 Eos # 0.05 K/uL Normal 0.0-0.5 Baso # 0.01 K/uL Normal 0.0-0.1 Immature Grans Absolute 0.03 K/uL NRBC # 0.00 K/uL CMP, Comp 01/11/2019 [facility] Glucose 99 mg/dL Normal 74-106 Metabolic-Fcmg (315)- - BUN 19 mg/dL High 7-18 Creatinine 0.7 mg/dL Normal 0.6-1.3 Glom Filtration Rate, Estimate >60 mL/min >60 If >60 mL/min >60 12 BUN/Creat 27.1 ratio Sodium 139 mmol/L Normal 136-145 Potassium 4.3 mmol/L Normal 3.5-5.1 Chloride 102 mmol/L Normal 98-107 Carbon Dioxide 31 mmol/L Normal 21-32 Anion Gap 6 mEq/L Low 8-16 Calcium 9.4 mg/dL Normal 8.5-10.1 Total Protein 7.0 g/dL Normal 6.4-8.2 Albumin 3.8 g/dL Normal 3.4-5.0 Globulin 3.2 g/dL Normal 1.9-4.3 Alb/Glob 1.2 ratio Bilirubin,Total 0.3 mg/dL Normal 0.2-1.0 Sgot/Ast 23 U/L Normal 15-37 SGPT/Alt 20 U/L Normal 12-78 Alkaline Phosphatase 83 U/L Normal 45-117 Laboratory test 01/11/2019 [facility] Thyroid Stim 0.89 Normal 0.30-4.20 finding (315)- - Hormone uIU/mL Lipid 01/11/2019 [facility] Cholesterol 174 mg/dL < 200 13 Panel-fcmg (315)- - Triglycerides 143 mg/dL <150 14 HDL Cholesterol 62 mg/dL >40 15 LDL-Cholesterol 83 mg/dL < 100 16 Laboratory test 01/11/2019 [facility] Vitamin 34.5 ng/mL 30.0-100.0 17 finding (315)- - D,25-Hydroxy Vitamin B12 667 pg/mL Normal 193-986 1 This sample is drawn by:tg 2 Updated reference range on new analyzer 3 Updated reference range on new analyzer 4 Updated reference range 11-22-2018 5 Updated Reference Range 6 Concerning GFR Guidelines for Americans: Normal function or mild renal disease, if clinically at risk: >/= 60 mL/min Moderately decreased: 30-59 Severely decreased: 15-29 Renal failure: <15 There is reduced accuracy above 60ml/min/1.73 m squared, but the numeric value may be clinically useful in the near 60 range 7 Concerning GFR Guidelines: Normal function or mild renal disease, if clinically at risk: >/= 60 mL/min Moderately decreased: 30-59 Severely decreased: 15-29 Renal failure: <15 There is reduced accuracy above 60ml/min/1.73 m squared, but the numeric value may be clinically useful in the near 60 range Glomerular Filtration Rate (GFR) is estimated based on the CKD-EPI equation, which assumes a steady state for [...] drugs that are excreted by the kidneys. 8 Per NCEP ATP III Guidelines: Results lower than 40 mg/dL are suggestive of increased risk for coronary artery disease. Results > or = to 60 mg/dL are considered a negative risk factor. 9 Per NCEP ATP III Guidelines: Normal Population <130 Patients with medical conditions: CHD/DM Optimal: <100 Borderline high: 130-159 High: 160-189 Very high: >189 10 Clinical Guidelines for recommended serum 25(OH)Vitamin D Deficient at less than 20 ng/mL Insufficient at 20 to <30 ng/mL Sufficient at 30-100 ng/mL Toxicity at greater than 100 ng/mL 11 I10 E55.9 D64.9 E53.9 E03.9 12 Note: Persistent reduction for 3 months or more in an eGFR <60 mL/min/1.73 m2 defines CKD. Patients with eGFR values >/=60 mL/min/1.73 m2 may also have CKD if evidence of persistent proteinuria is present. The original MDRD equation for estimated GFR is not valid for patients less than 18 years of age. Additional information may be found at www.kdoqi.org. 13 Reference Guidelines*: Desirable: ........... < 200 mg/dL Borderline High: ..... 200-239 mg/dL High: ................ >= 240 mg/dL * The National Cholesterol Education Program (NCEP) 14 Reference Guidelines*: Normal: ............. < 150 mg/dL Borderline High: .... 150-199 mg/dL High: ............... 200-499 mg/dL Very High: .......... > 500 mg/dL * Source: National Cholesterol Education Program (NCEP) 15 Reference Guidelines*: Low HDL: ..... < 40 mg/dL Normal: ..... 40-60 mg/dL Desirable: ... > 60 mg/dL *The National Cholesterol Education Program(NCEP) 16 Reference Guidelines*: Optimal:........... <100 mg/dL Near Optimal....... 100-129 mg/dL Borderline High.... 130-159 mg/dL High............... 160-189 mg/dL Very High.......... >=190 mg/dL * Source: National Cholesterol Education Program (NCEP) 17 Vitamin D deficiency has been defined by the [place] of [employer] and an Endocrine Society practice guideline as a level of serum 25-OH vitamin D less than 20 ng/mL (1,2). The Endocrine Society went on to further define vitamin D insufficiency as a level between 21 and 29 ng/mL (2). 1. IOM ([place] of [employer]). 2010. Dietary reference intakes for calcium and D. [place]: The National Academies Press. 2. Chelsey MF, Jose MELENDEZ, Joselo JIM, et al. Evaluation, treatment, and prevention of vitamin D deficiency: an Endocrine Society clinical practice guideline. JCEM. 2010; 96(7):1911-30. Performed at: RN - [facility] [address] [id number] Lead Cargo Mover: Yu Rodrigues MD, Phone: [phone] Procedures Date Code Description Status 06/29/2018 646777213 Bone Mineral Density Test Completed 05/09/2018 734130260 Bone Mineral Density Test Completed 02/04/2017 85581100 Colonoscopy Completed Medical Devices Description No Information Available Encounters Type Date Location Provider Dx Diagnosis Office Visit 01/15/2019 [facility] Roosevelt Garza R41.82 [facility], DO status, unspecified E03.9 Hypothyroidism, unspecified K02.9 Dental caries, unspecified E55.9 Vitamin D deficiency, unspecified G20 Parkinson's disease F71 Moderate intellectual disabilities Office Visit 01/03/2019 2:30p [facility] Roosevelt Garza Z00.00 [facility], DO general adult medical exam w/o abnormal findings G20 Parkinson's disease R26.9 Unspecified abnormalities of gait and mobility E03.9 Hypothyroidism, unspecified I10 Essential (primary) hypertension F79 Unspecified intellectual disabilities K59.00 Constipation, unspecified Assessments Date Code Description Provider 04/06/2019 G20 Parkinson's disease Cristina Michelle MD 04/06/2019 R41.82 Altered mental status, unspecified Cristina Michelle MD 04/06/2019 F71 Moderate intellectual disabilities Cristina Michelle MD 04/06/2019 E03.9 Hypothyroidism, unspecified Cristina Michelle MD 04/06/2019 E55.9 Vitamin D deficiency, unspecified Cristina Michelle MD 04/06/2019 G40.89 Other seizures Cristina Michelle MD 04/06/2019 K59.00 Constipation, unspecified Cristina Michelle MD 04/06/2019 F33.0 Major depressive disorder, recurrent, mild Cristina Michelle MD 04/06/2019 R45.1 Restlessness and agitation Cristina Michelle MD 04/06/2019 R25.1 Tremor, unspecified Cristina Michelle MD 04/06/2019 G20 Parkinson's disease [facility] 04/06/2019 E55.9 Vitamin D deficiency, unspecified [facility] 04/06/2019 E03.9 Hypothyroidism, unspecified [facility] 01/15/2019 R41.82 Altered mental status, unspecified Roosevelt Kuhn, DO 01/15/2019 E03.9 Hypothyroidism, unspecified Roosevelt Kuhn, DO 01/15/2019 K02.9 Dental caries, unspecified Roosevelt Kuhn, DO 01/15/2019 E55.9 Vitamin D deficiency, unspecified Roosevelt Kuhn P, DO 01/15/2019 G20 Parkinson's disease Roosevelt Kuhn, DO 01/15/2019 F71 Moderate intellectual disabilities Roosevelt Kuhn, DO 01/03/2019 Z00.00 Encounter for general adult medical Roosevelt Kuhn, DO examination without abno 01/03/2019 G20 Parkinson's disease Roosevelt Kuhn, DO 01/03/2019 R26.9 Unspecified abnormalities of gait and Roosevelt Kuhn, DO mobility 01/03/2019 E03.9 Hypothyroidism, unspecified Roosevelt Kuhn P, DO 01/03/2019 I10 Essential (primary) hypertension Roosevelt Kuhn, DO 01/03/2019 F79 Unspecified intellectual disabilities Roosevelt Kuhn, DO 01/03/2019 K59.00 Constipation, unspecified Roosevelt Kuhn DO Plan of Treatment Future Appointment(s):07/06/2019 1:00 pm - Cristina Michelle MD at [facility]04/06/2019 - Cristina Michelle MDG20 Parkinson's diseaseComments:Stable. He will continue current line of therapy. We will continue to follow.R41.82 Altered mental status, unspecifiedComments:Stable. He will continue current line of therapy. We will continue to follow.F71 Moderate intellectual disabilitiesComments:Stable. He will continue current line of therapy. We will continue to follow.E03.9 Hypothyroidism, unspecifiedComments:The patient was advised to continue on current medication regimen. We will need to monitor his TSH periodically.E55.9 Vitamin D deficiency, unspecifiedComments:Improvement in symptoms seen. We will continue vitamin D supplements. We will need to check blood work periodically.G40.89 Other seizuresComments:The patient will continue current line of therapy. We will follow.K59.00 Constipation, unspecifiedComments:Stable at this time. Advised to continue on current medication regimen. We will continue to monitor.F33.0 Major depressive disorder, recurrent, mildComments:Condition reviewed in detail with caregiver. The patient's mood is stable at present with current medication regimen, will continue the same. We will continue to monitor.R45.1 Restlessness and agitationComments:Stable. Patient will continue current line of therapy. We will continue to follow.R25.1 Tremor, unspecifiedComments:Stable. The patient will continue current line of therapy. We will continue to follow.AllFollow up:The patient will follow-up with me in three months with CBC, CMP, Lipids, TSH, Vitamin D, and Vitamin B12 one week prior appointment. Functional Status Description No Information Available Mental Status Description No Information Available Referrals Description No Information Available
[2019-04-19 21:12] VITALS: BP 139/99
--- NOTE | 2019-04-19 21:49 | UC ---
Lower Extremity/Ankle HPI - HPI Summary HPI Summary: 73 yo man, halfway resident, with multiple medical problems. Staff at halfway noticed erythema and swelling of left foot fifth digit about an hour prior to coming for assessment. Wheel chair bound - History of Current Complaint Chief Complaint: UCLowerExtremity Stated Complaint: LEFT PINKY TOE INJURY Time Seen by Provider: 04/19/19 21:44 Hx Obtained From: Patient, Family/Retail Sales Merchandiser Development - here with halfway staff person. Onset/Duration: Lasting Hours Severity Initially: Mild Severity Currently: Mild Pain Intensity: 0 Aggravating Factor(s): Nothing - Risk Factors Gout Risk Factors: Age Over 40, Male DVT Risk Factors: Negative Septic Arthritis Risk Factor: Negative - Allergies/Home Medications Allergies/Adverse Reactions: Allergies Allergy/AdvReac Type Severity Reaction Status Date / Time No Known Allergies Allergy Verified 09/14/18 15:59 Home Medications: Home Medications Mirtazapine TAB* [Remeron TAB*] 30 mg PO BEDTIME 04/19/19 [History Confirmed ] Polyethylene Glycol 3350* [Miralax*] 17 gm PO DAILY PRN 04/19/19 [History Confirmed 04/19/19] hydrOXYzine HCL TAB* [Atarax 25 MG TAB*] 25 mg PO BID 04/19/19 [History Confirmed 04/19/19] PMH/Surg Hx/FS Hx/Imm Hx Endocrine History: Hypothyroidism Neurological History: Dementia Psychological History: Other - Parkinson's disease with dementia - Surgical History Surgical History: Yes Surgery Procedure, Year, and Place: 1976 HERNIA; BILAT INGUINAL [facility]ERNIA 11/20-2006; RT INGUINAL HERNIA 02/2010 - Family History Known Family History: Positive: Unknown - Social History Alcohol Use: None Substance Use Type: None Smoking Status (MU): Never Smoked Tobacco Review of Systems All Other Systems Reviewed And Are Negative: Yes Constitutional: Positive: Negative, Other - wheel chair bound with contact guard , tends to slump in chair. Respiratory: Positive: Negative Cardiovascular: Positive: Negative Is Patient Immunocompromised?: No Physical Exam Triage Information Reviewed: Yes Completion Of Physical Exam Limited Due To: Other - elderly man seated in wheel chair. Appearance: No Pain Distress, Ill-Appearing, Thin Vital Signs: Initial Vital Signs Temp 98.5 F 04/19/19 21:07 Pulse 82 09/26/19 21:07 Resp 17 04/19/19 21:07 BP 139/99 04/19/19 21:07 Pulse Ox 100 04/19/19 21:07 Respiratory: Positive: Lungs clear, Normal breath sounds Cardiovascular: Positive: RRR, No Murmur Musculoskeletal Exam: Other - bruising/erythema of left fifth digit without warmth, not tender to palpation. Foot and ankle otherwise intact. Neurological Exam: Other - tremulous, mildly irritable. Skin Exam: Other - ecchymosis right arm. Diagnostics - Radiology No standard instances Radiology Interpretation Completed By: ED Physician Summary of Radiographic Findings: no fracture seen, normal joint spaces. Lower Extremity Course/Dx - Course Course Of Treatment: observation. - Differential Dx/Diagnosis Differential Diagnosis/HQI/PQRI: Contusion, Fracture (Closed), Sprain, Strain Provider Diagnosis: Contusion Discharge ED - Sign-Out/Discharge Documenting (check all that apply): Patient Departure All imaging exams completed and their final reports reviewed: No - Discharge Plan Condition: Stable Disposition: HOME Patient Education Materials: Contusion in Adults (ED) Referrals: Cristina Michelle MD [Primary Care Provider] - Additional Instructions: The radiologist will review my read tomorrow and you will be notified if there is a fracture which I did not appreciate. No specific treatment is needed, but observe to ensure that bruising resolves; follow up if there is progressive swelling or pain develops. - Billing Disposition and Condition Condition: STABLE Disposition: Home
--- NOTE | 2019-04-20 09:11 | UC ---
- Progress Note Progress Note: Imaging reviewed. No fracture seen on x-ray. This was read appropriately by the provider yesterday. No change in plan Course/Dx - Diagnoses Provider Diagnoses: Contusion Discharge ED - Sign-Out/Discharge Documenting (check all that apply): Post-Discharge Follow Up All imaging exams completed and their final reports reviewed: Yes - Discharge Plan Condition: Stable Disposition: HOME Patient Education Materials: Contusion in Adults (ED) Referrals: Cristina Michelle MD [Primary Care Provider] - Additional Instructions: The radiologist will review my read tomorrow and you will be notified if there is a fracture which I did not appreciate. No specific treatment is needed, but observe to ensure that bruising resolves; follow up if there is progressive swelling or pain develops. - Billing Disposition and Condition Condition: STABLE Disposition: Home
== END 2019-04-19 22:12 | disposition home or self-care (01) ==
LOC: UCCORT 20:32
DX: S90.122A Contusion of left lesser toe(s) without damage to nail, initial encounter (principal); Z99.3 Dependence on wheelchair; E03.9 Hypothyroidism, unspecified; G20 Parkinson's disease; F02.80 Dementia in other diseases classified elsewhere, unspecified severity, without behavioral disturbance, psychotic disturbance, mood disturbance, and anxiety; X58.XXXA Exposure to other specified factors, initial encounter; Y92.9 Unspecified place or not applicable
CPT/HCPCS: 99211; G0463